=== PATIENT | male | born 1950 | race Caucasian/White ===

== ENCOUNTER 2019-04-17 09:12 | Day surgery (SDC) | payer OTHER, MEDICARE ==
[2019-04-13 17:08] VITALS: BMI 33.6
[2019-04-17 09:42] VITALS: TEMP 98.8
[2019-04-17] MEDS ORDERED: PHENYLEPHRINE HCL 10 MG/1 ML SINGLE DOSE VIAL ONE (10:21)
[2019-04-17 11:25] VITALS: BP 124/80; PULSE 92
--- NOTE | 2019-04-20 17:50 | PATH ---
Surgical Pathology Report Patient Name: NILSA ESTRADA [facility]. Rec. #: [id number] /Age/Gender: 1950 (Age: 68) / M Account: [id number] Location: [facility] Taken: 04/17/2019 Received: 04/17/2019 Reported: 04/20/2019 Physicians: FRANCES ELIZALDE Specimen(s) Received A: DUODENUM B: STOMACH WITH POLYP C: ESOPHAGUS D: POLYP CECUM E: CECUM F: ASCENDING COLON G: POLYP RECTUM Clinical History Reflux, positive cologuard test Postoperative diagnosis: Esophagitis, gastric polyp, gastric erosion, colon polyps, hemorrhoids Final Diagnosis A. DUODENUM, BIOPSY: DUODENAL MUCOSA WITHOUT SIGNIFICANT PATHOLOGIC FINDINGS. B. STOMACH, BODY, POLYP, BIOPSY: POLYPOID GASTRIC BODY MUCOSA WITH MILD CHRONIC GASTRITIS. IMMUNOHISTOCHEMICAL STAIN FOR H. PYLORI IS NEGATIVE. C. ESOPHAGUS, BIOPSY: SQUAMOCOLUMNAR MUCOSA WITH SEVERE REFLUX TYPE CHANGES AND ACUTE ESOPHAGITIS. DETACHED FRAGMENTS OF ACUTE INFLAMMATORY EXUDATE CONSISTENT WITH ULCER BED. NO INTESTINAL METAPLASIA OR DYSPLASIA IDENTIFIED. PAS FUNGAL STAIN IS NEGATIVE. D. CECUM, POLYP, BIOPSY: HYPERPLASTIC POLYP. E. CECUM, POLYPECTOMY: TUBULAR ADENOMA. F. ASCENDING COLON, POLYPECTOMY: TUBULAR ADENOMA(S). G. RECTUM, POLYP, BIOPSY: HYPERPLASTIC POLYP. Immunohistochemical stain performed at [place], [place] ([id number]) and interpreted at [facility]. Positive and negative controls (internal if applicable) show appropriate results. Electronically Signed Lizzeth Cruz M.D. Gross Description A. Received in formalin, labeled "biopsy duodenum" is a mehta, irregular portion of soft tissue measuring 0.2 cm. in greatest dimension. The specimen is submitted in toto in one cassette. B. Received in formalin, labeled "biopsy of stomach with polyp" are 3 mehta, irregular portions of soft tissue ranging from 0.2-0.4 cm. in greatest dimension. The specimens are submitted in toto in one cassette. C. Received in formalin, labeled "biopsy esophagus" are 4 mehta, irregular portions of soft tissue averaging 0.1 cm. in greatest dimension. The specimens are submitted in toto in one cassette. D. Received in formalin, labeled "biopsy polyp cecum" is a mehta, irregular portion of soft tissue measuring 0.3 cm. in greatest dimension. The specimen is submitted in toto in one cassette. E. Received in formalin, labeled "hot snare polypectomy cecum" are 2 mehta, irregular portions of soft tissue measuring 0.3 and 0.4 cm. in greatest dimension. The specimens are submitted in toto in one cassette. F. Received in formalin, labeled "hot snare polypectomy ascending colon" are 8 mehta, irregular portions of soft tissue ranging from 0.1-0.5 cm. in greatest dimension. The specimens are submitted in toto in one cassette. G. Received in formalin, labeled "biopsy polyp rectum" is a mehta, irregular portion of soft tissue measuring 0.2 cm. in greatest dimension. The specimen is submitted in toto in one cassette. 04/18/2019 [facility]04/18/2019
== END 2019-04-17 11:29 | disposition home or self-care (01) ==
LOC: FASU-ENDO 09:12
PROVIDERS: ATTEND Internal Medicine Gastroenterology
PROC: 0DBH8ZX Excision of Cecum, Via Natural or Artificial Opening Endoscopic, Diagnostic (ICD-10-PCS; 2019-04-17)
PROC: 0DBH8ZX Excision of Cecum, Via Natural or Artificial Opening Endoscopic, Diagnostic (ICD-10-PCS; 2019-04-17)
PROC: 0DBP8ZX Excision of Rectum, Via Natural or Artificial Opening Endoscopic, Diagnostic (ICD-10-PCS; 2019-04-17)
PROC: 0DB38ZX Excision of Lower Esophagus, Via Natural or Artificial Opening Endoscopic, Diagnostic (ICD-10-PCS; 2019-04-17)
PROC: 0DB68ZX Excision of Stomach, Via Natural or Artificial Opening Endoscopic, Diagnostic (ICD-10-PCS; 2019-04-17)
PROC: 0DBK8ZX Excision of Ascending Colon, Via Natural or Artificial Opening Endoscopic, Diagnostic (ICD-10-PCS; principal; 2019-04-17 10:05)
DX: Z12.11 Encounter for screening for malignant neoplasm of colon (principal); K64.4 Residual hemorrhoidal skin tags; K64.8 Other hemorrhoids; K29.50 Unspecified chronic gastritis without bleeding; K21.0 Gastro-esophageal reflux disease with esophagitis; K25.9 Gastric ulcer, unspecified as acute or chronic, without hemorrhage or perforation; K31.7 Polyp of stomach and duodenum; K20.8 Other esophagitis
CPT/HCPCS: 88305-TC; 88312-TC

== ENCOUNTER 2020-09-04 15:12 | Inpatient (IN) | payer OTHER, MEDICARE ==
[2020-09-04] MEDS ORDERED: SODIUM CHLORIDE 0.9% 500 ML INFUS.BAG IV ONE ×2 (16:07→17:52)
[2020-09-04] MEDS ORDERED: SODIUM CHLORIDE 3,266 ML IV ONE (16:09)
[2020-09-04] MEDS ORDERED: ACETAMINOPHEN INJECTION 100 ML IVPB ONE (17:02)
[2020-09-04] MEDS ORDERED: ACETAMINOPHEN 1000 MG/100 ML VIAL (NON FORMULARY) IVPB ONE (17:02)
[2020-09-04 17:18] LABS: BASO % 0.1 % (0-2.0); EOS % 0.2 % (0-4.5); HEMATOCRIT 34.9 % (35.4-49); LYMPH % 3.4 % (8-40); MCH 25.6 pg (25.7-33.7); MCHC 31.4 g/dl (32.0-35.9); MEAN CELL VOLUME 81.6 fl (80-96); MEAN PLT VOLUME 9.2 fl (7.5-11.1); MONO % 5.5 % (3.8-10.2); NEUT % 90.8 % (42.8-82.8); PLATELET COUNT 131 10^3/uL (134-434); RBC 4.28 M/mm3 (4.00-5.60); RDW 15.7 % (11.9-15.9); WHITE BLOOD COUNT 13.6 K/mm3 (4.0-10.0)
[2020-09-04 17:20] LABS: CHLORIDE 101 mmol/L (98-107); SODIUM 132 mmol/L (136-145)
[2020-09-04 17:23] LABS: BLOOD UREA NITROGEN 97.6 mg/dL (7-18)
[2020-09-04 17:24] LABS: ANION GAP 17 MMOL/L (8-16); CALCIUM 8.2 mg/dL (8.5-10.1); CO2 15 mmol/L (21-32); GLUCOSE,RANDOM 120 mg/dL (74-106); INR 1.12 (0.83-1.09); MAGNESIUM 2.3 mg/dL (1.8-2.4); PROTHROMBIN TIME (PATIENT) 13.7 SEC (9.7-13.0)
[2020-09-04 17:26] LABS: CREATININE 7.1 mg/dL (0.55-1.3); PHOSPHOROUS 4.6 mg/dL (2.5-4.9); SGOT/AST 35 U/L (15-37); SGPT/ALT 41 U/L (13-61)
[2020-09-04 17:27] LABS: ACTIVATED PTT 28.8 SECONDS (25.2-36.5)
[2020-09-04 17:28] LABS: BILIRUBIN,TOTAL 0.5 mg/dL (0.2-1); TOT PROT 6.5 g/dl (6.4-8.2)
[2020-09-04 17:29] LABS: ALK PHOS 94 U/L (45-117)
[2020-09-04 17:32] LABS: LACTIC ACID 2.7 mmol/L (0.4-2.0)
[2020-09-04 18:30] LABS: PLATELET ESTIMATE DECREASED
[2020-09-04 18:51] LABS: VENOUS BASE EXCESS -11.2 mmol/L (-2-2); VENOUS O2 SATURATION 78.2 % (70-80); VENOUS PCO2 28.1 mmHg (38-52); VENOUS PH 7.309 (7.310-7.410)
[2020-09-04 19:06] LABS: CHLORIDE 103 mmol/L (98-107); SODIUM 133 mmol/L (136-145)
[2020-09-04 19:07] LABS: CALCIUM 7.4 mg/dL (8.5-10.1)
[2020-09-04 19:08] LABS: ANION GAP 16 MMOL/L (8-16); BLOOD UREA NITROGEN 98.8 mg/dL (7-18); CO2 13 mmol/L (21-32); GLUCOSE,RANDOM 101 mg/dL (74-106); MAGNESIUM 2.1 mg/dL (1.8-2.4)
[2020-09-04 19:11] LABS: CREATININE 6.6 mg/dL (0.55-1.3); PHOSPHOROUS 4.2 mg/dL (2.5-4.9)
[2020-09-04 19:11] LABS: URINE APPEARANCE Clear; URINE BILIRUBIN Negative (NEGATIVE); URINE COLOR Yellow; URINE GLUCOSE (UA) Negative (NEGATIVE); URINE KETONE Negative (NEGATIVE); URINE LEUK ESTERASE 2+ (NEGATIVE); URINE NITRITE Negative (NEGATIVE); URINE PROTEIN 2+ (NEGATIVE); URINE UROBILINOGEN 0.2 mg/dL (0.2-1.0)
[2020-09-04 19:15] LABS: LACTIC ACID 2.4 mmol/L (0.4-2.0)
[2020-09-04 19:20] LABS: EPI CELLS 3.4 /uL (0-25.1); HYALINE CASTS 5.08 /uL (0-3.1); URINE BACTERIA 10353.3 /uL (0-1359); URINE RBC 32.9 /uL (0-23.9); URINE WBC 983.8 /uL (0-25.8)
[2020-09-04] MEDS ORDERED: CEFTRIAXONE 1 GM in DEXTROSE 5%-WATER - 100 ML IVPB ONE (19:35)
[2020-09-04 19:44] LABS: OSMOLALITY,SERUM 317 mosm/kg (278-305)
[2020-09-04] MEDS ORDERED: SODIUM BICARBONATE 8.4% 50 MEQ/50 ML VIAL ONE (19:53)
[2020-09-04] MEDS ORDERED: CEFTRIAXONE 1 GM/50 ML BAG ONE (19:54)
[2020-09-04] MEDS ORDERED: LACTATED RINGERS SOLUTION 1,000 ML/1,000 ML INFUS.BAG IV SCH (20:00)
[2020-09-04] MEDS: SODIUM BICARBONATE 8.4% 50 MEQ/50 ML DISP.SYRIN IVPUSH SCH (20:01)
[2020-09-05] MEDS ORDERED: PIPERACILLIN/TAZOB 2.25 GM 2.25 GM in DEXTROSE 5%-WATER - 50 ML IVPB SCH ×2 (02:00→10:00)
[2020-09-05] MEDS ORDERED: LINEZOLID 600 MG PREMIX BAG 600 MG/300 ML BAG IVPB SCH (02:00)
[2020-09-05] MEDS ORDERED: PIPERACILLIN/TAZOBACTAM 2.25 GM VIAL IVPB ONE ×3 (02:17→16:06)
[2020-09-05] MEDS ORDERED: DEXTROSE 5%-WATER - 50 ML IVPB ONE ×3 (02:17→16:07)
[2020-09-05] MEDS: PIPERACILLIN/TAZOB 2.25 GM 2.25 GM in DEXTROSE 5%-WATER - 50 ML IVPB SCH ×3 (02:19→17:08)
[2020-09-05] MEDS: SODIUM BICARBONATE 8.4% 50 MEQ/50 ML DISP.SYRIN IVPUSH SCH ×3 (02:23→16:56)
[2020-09-05] MEDS: HEPARIN NA (PORCINE) 5,000 UNITS/ML 1ML VIAL SQ SCH ×3 (05:51→22:00)
[2020-09-05 07:06] LABS: EOS % 1.9 % (0-4.5); HEMATOCRIT 28.3 % (35.4-49); HEMOGLOBIN 9.2 GM/dL (11.7-16.9); LYMPH % 1.2 % (8-40); MCH 25.7 pg (25.7-33.7); MCHC 32.3 g/dl (32.0-35.9); MEAN CELL VOLUME 79.5 fl (80-96); MEAN PLT VOLUME 9.4 fl (7.5-11.1); MONO % 6.1 % (3.8-10.2); NEUT % 90.8 % (42.8-82.8); PLATELET COUNT 97 10^3/uL (134-434); RBC 3.56 M/mm3 (4.00-5.60); RDW 15.9 % (11.9-15.9); WHITE BLOOD COUNT 15.4 K/mm3 (4.0-10.0)
[2020-09-05 07:19] LABS: CHLORIDE 103 mmol/L (98-107); SODIUM 136 mmol/L (136-145)
[2020-09-05 07:28] LABS: CALCIUM 7.2 mg/dL (8.5-10.1); GLUCOSE,RANDOM 108 mg/dL (74-106)
[2020-09-05 07:29] LABS: ANION GAP 18 MMOL/L (8-16); CO2 15 mmol/L (21-32); MAGNESIUM 1.8 mg/dL (1.8-2.4)
[2020-09-05 07:31] LABS: CHOLESTEROL 104 mg/dL (50-200); PHOSPHOROUS 4.6 mg/dL (2.5-4.9); TRIGLYCERIDES 294 mg/dL (0-150)
[2020-09-05 07:32] LABS: BILIRUBIN,TOTAL 0.6 mg/dL (0.2-1); CREATININE 7.4 mg/dL (0.55-1.3); LDH 308 U/L (87-246); LDL CHOLESTEROL (ONLY SJRH) 32 mg/dL (5-100); SGOT/AST 30 U/L (15-37); SGPT/ALT 33 U/L (13-61); URIC ACID 8.9 mg/dL (2.6-7.2)
[2020-09-05 07:33] LABS: ALK PHOS 102 U/L (45-117)
[2020-09-05 07:34] LABS: HDL CHOLESTEROL 9 mg/dL (40-60); TOT PROT 5.1 g/dl (6.4-8.2)
[2020-09-05 07:48] LABS: ALBUMIN 2.2 g/dl (3.4-5.0)
[2020-09-05] MEDS: ALLOPURINOL 100 MG TABLET (FP) PO SCH (09:16)
[2020-09-05] MEDS: PANTOPRAZOLE 40 MG TABLET PO SCH (09:16)
[2020-09-05] MEDS ORDERED: ALBUTEROL SO4 2.5/IPRATROPIUM 0.5 INH SOL 3 ML VIAL.NEB. NEB PRN (10:10)
[2020-09-05 10:14] LABS: ANISOCYTOSIS 1+; MACROCYTOSIS 0; PLATELET ESTIMATE DECREASED
[2020-09-05] MEDS ORDERED: LACTATED RINGERS SOLUTION 1,000 ML/1,000 ML INFUS.BAG IV SCH (13:29)
[2020-09-05] MEDS: metoPROLOL SUCCINATE 25 MG TAB.SR.24H (FP) PO SCH (17:46)
[2020-09-05] MEDS: SODIUM BICARBONATE 8.4% - 50 MEQ in SODIUM CHLORIDE 0.45% 1,000 ML IV SCH (18:18)
[2020-09-05] MEDS: ROSUVASTATIN CA 5 MG TABLET (FP) PO SCH (22:00)
[2020-09-05] MEDS ORDERED: PT OWN MED DRAWER 7, Y5N ONE (22:22)
[2020-09-06] MEDS ORDERED: DEXTROSE 5%-WATER - 50 ML IVPB ONE ×3 (01:48→17:12)
[2020-09-06] MEDS ORDERED: PIPERACILLIN/TAZOBACTAM 2.25 GM VIAL IVPB ONE ×3 (01:48→17:12)
[2020-09-06] MEDS ORDERED: PROPOFOL 1,000,000 MCG/100 ML VIAL ONE (01:49)
[2020-09-06] MEDS: PIPERACILLIN/TAZOB 2.25 GM 2.25 GM in DEXTROSE 5%-WATER - 50 ML IVPB SCH ×3 (02:00→17:30)
[2020-09-06] MEDS: SODIUM BICARBONATE 8.4% - 50 MEQ in SODIUM CHLORIDE 0.45% 1,000 ML IV SCH ×2 (05:54→19:30)
[2020-09-06] MEDS: HEPARIN NA (PORCINE) 5,000 UNITS/ML 1ML VIAL SQ SCH ×3 (05:55→21:09)
[2020-09-06 07:47] LABS: BASO % 0.2 % (0-2.0); HEMATOCRIT 27.6 % (35.4-49); LYMPH % 5.3 % (8-40); MCH 25.8 pg (25.7-33.7); MCHC 32.5 g/dl (32.0-35.9); MEAN CELL VOLUME 79.3 fl (80-96); MEAN PLT VOLUME 9.3 fl (7.5-11.1); MONO % 7.7 % (3.8-10.2); NEUT % 85.8 % (42.8-82.8); PLATELET COUNT 87 10^3/uL (134-434); RBC 3.48 M/mm3 (4.00-5.60); WHITE BLOOD COUNT 12.2 K/mm3 (4.0-10.0)
[2020-09-06 08:09] LABS: CHLORIDE 99 mmol/L (98-107); SODIUM 132 mmol/L (136-145)
[2020-09-06 08:13] LABS: CALCIUM 7.3 mg/dL (8.5-10.1)
[2020-09-06 08:14] LABS: ALBUMIN 1.9 g/dl (3.4-5.0); ANION GAP 15 MMOL/L (8-16); CO2 18 mmol/L (21-32); GLUCOSE,RANDOM 99 mg/dL (74-106); MAGNESIUM 2.3 mg/dL (1.8-2.4)
[2020-09-06 08:17] LABS: SGOT/AST 26 U/L (15-37); SGPT/ALT 32 U/L (13-61)
[2020-09-06 08:19] LABS: TOT PROT 5.2 g/dl (6.4-8.2)
[2020-09-06 08:20] LABS: ALK PHOS 103 U/L (45-117)
[2020-09-06 08:33] LABS: CREATININE 7.6 mg/dL (0.55-1.3)
[2020-09-06 09:02] LABS: ANISOCYTOSIS 2+; PLATELET ESTIMATE DECREASED
[2020-09-06] MEDS: metoPROLOL SUCCINATE 25 MG TAB.SR.24H (FP) PO SCH (09:44)
[2020-09-06] MEDS: PANTOPRAZOLE 40 MG TABLET PO SCH (09:44)
[2020-09-06] MEDS: POLYETHYLENE GLYCOL (HEALTHYLAX) 3350 17 GM PACKET PO SCH ×2 (09:44→21:09)
[2020-09-06] MEDS: SENNOSIDES 8.6MG TABLET (FP) PO SCH ×2 (09:44→21:10)
[2020-09-06] MEDS: ALLOPURINOL 100 MG TABLET (FP) PO SCH (09:44)
[2020-09-06] MEDS: ASPIRIN 81 MG CHEWABLE TABLETS PO SCH (09:44)
[2020-09-06 10:24] LABS: ARTERIAL BLD GAS O2 SATURATION 98.4 mmHg (95-98); ARTERIAL BLOOD GAS BASE EXCESS -4.6 mmol/L (-2-2); ARTERIAL BLOOD GAS PO2 118.2 mmHg (80-100)
[2020-09-06 10:25] LABS: ALLENS TEST POSITIVE
[2020-09-06] MEDS ORDERED: ACETAMINOPHEN 325 MG TABLET (FP) PO PRN (17:24)
[2020-09-06] MEDS: ROSUVASTATIN CA 5 MG TABLET (FP) PO SCH (21:09)
[2020-09-06] MEDS: DOCUSATE SODIUM 100 MG CAPSULE (FP) PO SCH (21:30)
[2020-09-07] MEDS ORDERED: DEXTROSE 5%-WATER - 50 ML IVPB ONE ×3 (00:07→15:18)
[2020-09-07] MEDS ORDERED: PIPERACILLIN/TAZOBACTAM 2.25 GM VIAL IVPB ONE ×3 (00:07→15:17)
[2020-09-07] MEDS: PIPERACILLIN/TAZOB 2.25 GM 2.25 GM in DEXTROSE 5%-WATER - 50 ML IVPB SCH ×3 (01:10→17:10)
[2020-09-07] MEDS: HEPARIN NA (PORCINE) 5,000 UNITS/ML 1ML VIAL SQ SCH ×3 (06:06→21:54)
[2020-09-07] MEDS: POLYETHYLENE GLYCOL (HEALTHYLAX) 3350 17 GM PACKET PO SCH ×2 (10:17→21:53)
[2020-09-07] MEDS: metoPROLOL SUCCINATE 25 MG TAB.SR.24H (FP) PO SCH (10:17)
[2020-09-07] MEDS: PANTOPRAZOLE 40 MG TABLET PO SCH (10:17)
[2020-09-07] MEDS: ALLOPURINOL 100 MG TABLET (FP) PO SCH (10:17)
[2020-09-07] MEDS: ASPIRIN 81 MG CHEWABLE TABLETS PO SCH (10:17)
[2020-09-07] MEDS: SENNOSIDES 8.6MG TABLET (FP) PO SCH ×2 (10:17→21:53)
[2020-09-07 10:21] LABS: BASO % 0.3 % (0-2.0); EOS % 1.1 % (0-4.5); HEMATOCRIT 30.9 % (35.4-49); HEMOGLOBIN 9.9 GM/dL (11.7-16.9); LYMPH % 8.3 % (8-40); MCH 25.6 pg (25.7-33.7); MEAN CELL VOLUME 79.9 fl (80-96); MEAN PLT VOLUME 9.6 fl (7.5-11.1); MONO % 6.6 % (3.8-10.2); NEUT % 83.7 % (42.8-82.8); PLATELET COUNT 103 10^3/uL (134-434); RBC 3.87 M/mm3 (4.00-5.60); RDW 16.1 % (11.9-15.9)
[2020-09-07 10:39] LABS: CHLORIDE 100 mmol/L (98-107); SODIUM 132 mmol/L (136-145)
[2020-09-07 10:41] LABS: ALBUMIN 1.8 g/dl (3.4-5.0); CALCIUM 7.7 mg/dL (8.5-10.1)
[2020-09-07 10:42] LABS: ANION GAP 16 MMOL/L (8-16); CO2 17 mmol/L (21-32); GLUCOSE,RANDOM 134 mg/dL (74-106); MAGNESIUM 2.6 mg/dL (1.8-2.4)
[2020-09-07 10:44] LABS: SGOT/AST 36 U/L (15-37); SGPT/ALT 41 U/L (13-61)
[2020-09-07 10:46] LABS: TOT PROT 5.3 g/dl (6.4-8.2)
[2020-09-07 10:54] LABS: ALK PHOS 145 U/L (45-117); BLOOD UREA NITROGEN 140.9 mg/dL (7-18)
[2020-09-07] MEDS: SODIUM BICARBONATE 8.4% - 50 MEQ in SODIUM CHLORIDE 0.45% 1,000 ML IV SCH (11:52)
[2020-09-07] MEDS ORDERED: PT OWN MED DRAWER 7, Y5N ONE (18:41)
[2020-09-07] MEDS: DOCUSATE SODIUM 100 MG CAPSULE (FP) PO SCH (21:53)
[2020-09-07] MEDS: ROSUVASTATIN CA 5 MG TABLET (FP) PO SCH (22:30)
[2020-09-08] MEDS ORDERED: PIPERACILLIN/TAZOBACTAM 2.25 GM VIAL IVPB ONE ×4 (01:17→21:44)
[2020-09-08] MEDS ORDERED: DEXTROSE 5%-WATER - 50 ML IVPB ONE ×4 (01:18→21:44)
[2020-09-08] MEDS: PIPERACILLIN/TAZOB 2.25 GM 2.25 GM in DEXTROSE 5%-WATER - 50 ML IVPB SCH ×3 (01:21→17:54)
[2020-09-08] MEDS: SODIUM BICARBONATE 8.4% - 50 MEQ in SODIUM CHLORIDE 0.45% 1,000 ML IV SCH ×2 (01:21→09:00)
[2020-09-08 06:41] LABS: BASO % 0.2 % (0-2.0); EOS % 1.2 % (0-4.5); HEMATOCRIT 28.5 % (35.4-49); HEMOGLOBIN 9.2 GM/dL (11.7-16.9); LYMPH % 6.1 % (8-40); MCH 25.5 pg (25.7-33.7); MCHC 32.4 g/dl (32.0-35.9); MEAN CELL VOLUME 78.8 fl (80-96); MEAN PLT VOLUME 9.4 fl (7.5-11.1); MONO % 8.4 % (3.8-10.2); NEUT % 84.1 % (42.8-82.8); PLATELET COUNT 132 10^3/uL (134-434); RBC 3.61 M/mm3 (4.00-5.60); RDW 16.4 % (11.9-15.9); WHITE BLOOD COUNT 11.2 K/mm3 (4.0-10.0)
[2020-09-08 06:53] LABS: CHLORIDE 100 mmol/L (98-107); SODIUM 134 mmol/L (136-145)
[2020-09-08] MEDS: HEPARIN NA (PORCINE) 5,000 UNITS/ML 1ML VIAL SQ SCH ×3 (06:53→21:37)
[2020-09-08 07:01] LABS: CALCIUM 7.7 mg/dL (8.5-10.1)
[2020-09-08 07:02] LABS: ALBUMIN 1.9 g/dl (3.4-5.0); ANION GAP 15 MMOL/L (8-16); CO2 19 mmol/L (21-32); GLUCOSE,RANDOM 92 mg/dL (74-106); MAGNESIUM 2.7 mg/dL (1.8-2.4)
[2020-09-08 07:04] LABS: SGPT/ALT 42 U/L (13-61)
[2020-09-08 07:05] LABS: SGOT/AST 31 U/L (15-37)
[2020-09-08 07:06] LABS: TOT PROT 5.3 g/dl (6.4-8.2)
[2020-09-08 07:08] LABS: ALK PHOS 157 U/L (45-117)
[2020-09-08 07:19] LABS: BLOOD UREA NITROGEN 147.4 mg/dL (7-18); CREATININE 8.4 mg/dL (0.55-1.3)
[2020-09-08] MEDS: PANTOPRAZOLE 40 MG TABLET PO SCH (09:02)
[2020-09-08] MEDS: metoPROLOL SUCCINATE 25 MG TAB.SR.24H (FP) PO SCH (09:02)
[2020-09-08] MEDS: ALLOPURINOL 100 MG TABLET (FP) PO SCH (09:02)
[2020-09-08] MEDS: ASPIRIN 81 MG CHEWABLE TABLETS PO SCH (09:02)
[2020-09-08] MEDS: POLYETHYLENE GLYCOL (HEALTHYLAX) 3350 17 GM PACKET PO SCH ×2 (09:15→21:37)
[2020-09-08] MEDS: SENNOSIDES 8.6MG TABLET (FP) PO SCH ×2 (09:15→21:37)
[2020-09-08] MEDS ORDERED: PT OWN MED DRAWER 7, Y5N ONE ×2 (21:37→21:40)
[2020-09-08] MEDS: DOCUSATE SODIUM 100 MG CAPSULE (FP) PO SCH (21:37)
[2020-09-08] MEDS: ROSUVASTATIN CA 5 MG TABLET (FP) PO SCH (21:39)
[2020-09-09] MEDS: PIPERACILLIN/TAZOB 2.25 GM 2.25 GM in DEXTROSE 5%-WATER - 50 ML IVPB SCH ×3 (01:00→17:36)
[2020-09-09] MEDS ORDERED: DEXTROSE 5%-WATER - 50 ML IVPB ONE ×3 (05:32→17:18)
[2020-09-09] MEDS ORDERED: PIPERACILLIN/TAZOBACTAM 2.25 GM VIAL IVPB ONE ×3 (05:32→17:18)
[2020-09-09 06:45] LABS: CHLORIDE 101 mmol/L (98-107); SODIUM 134 mmol/L (136-145)
[2020-09-09 06:50] LABS: CALCIUM 8.1 mg/dL (8.5-10.1)
[2020-09-09 06:51] LABS: ALBUMIN 2.2 g/dl (3.4-5.0); ANION GAP 16 MMOL/L (8-16); CO2 17 mmol/L (21-32); GLUCOSE,RANDOM 96 mg/dL (74-106); MAGNESIUM 2.9 mg/dL (1.8-2.4)
[2020-09-09 06:54] LABS: SGOT/AST 27 U/L (15-37); SGPT/ALT 42 U/L (13-61)
[2020-09-09 06:57] LABS: ALK PHOS 179 U/L (45-117)
[2020-09-09 07:19] LABS: BASO % 0.5 % (0-2.0); CREATININE 8.7 mg/dL (0.55-1.3); HEMATOCRIT 32.1 % (35.4-49); LYMPH % 5.1 % (8-40); MCH 25.2 pg (25.7-33.7); MEAN CELL VOLUME 81.1 fl (80-96); MEAN PLT VOLUME 9.4 fl (7.5-11.1); MONO % 8.2 % (3.8-10.2); NEUT % 85.2 % (42.8-82.8); PLATELET COUNT 188 10^3/uL (134-434); RBC 3.96 M/mm3 (4.00-5.60); RDW 16.5 % (11.9-15.9); WHITE BLOOD COUNT 10.8 K/mm3 (4.0-10.0)
[2020-09-09 07:29] LABS: BLOOD UREA NITROGEN 157.7 mg/dL (7-18)
[2020-09-09 07:54] LABS: INR 1.13 (0.83-1.09); PROTHROMBIN TIME (PATIENT) 13.9 SEC (9.7-13.0)
[2020-09-09] MEDS ORDERED: MIDAZOLAM HCL 2 MG/2 ML SINGLE DOSE VIAL ONE (07:54)
[2020-09-09] MEDS ORDERED: ceFAZolin SODIUM 1 GM VIAL IVPB ONE (08:40)
[2020-09-09] MEDS ORDERED: ONDANSETRON 4 MG/2 ML VIAL IVPUSH PRN ×2 (08:48→09:40)
[2020-09-09] MEDS ORDERED: PROPOFOL 20 ML ONE (08:50)
[2020-09-09] MEDS ORDERED: IOHEXOL 300 MG/ML INFUS..BTL IV ONE (08:50)
[2020-09-09] MEDS ORDERED: LACTATED RINGERS SOLUTION 1,000 ML IV SCH (09:00)
[2020-09-09] MEDS ORDERED: ALBUTEROL SO4 2.5/IPRATROPIUM 0.5 INH SOL 3 ML VIAL.NEB. NEB PRN (09:40)
[2020-09-09] MEDS ORDERED: SODIUM ZIRCONIUM CYCLOSILICATE (LOKELMA) 5 GM PACKET PO SCH (10:00)
[2020-09-09] MEDS: LACTATED RINGERS SOLUTION 1,000 ML IV SCH ×2 (10:10→10:40)
[2020-09-09] MEDS: PANTOPRAZOLE 40 MG TABLET PO SCH (11:26)
[2020-09-09] MEDS: ASPIRIN 81 MG CHEWABLE TABLETS PO SCH (11:26)
[2020-09-09] MEDS: SENNOSIDES 8.6MG TABLET (FP) PO SCH ×2 (11:26→22:12)
[2020-09-09] MEDS: POLYETHYLENE GLYCOL (HEALTHYLAX) 3350 17 GM PACKET PO SCH ×2 (11:26→22:12)
[2020-09-09] MEDS: MUPIROCIN 2% TOPICAL OINTMENT FOR DECOLONIZATION NS SCH ×2 (11:27→22:21)
[2020-09-09] MEDS: ALLOPURINOL 100 MG TABLET (FP) PO SCH (11:27)
[2020-09-09] MEDS ORDERED: SODIUM CHLORIDE 0.45% 1,000 ML IV SCH (15:00)
[2020-09-09] MEDS: SODIUM ZIRCONIUM CYCLOSILICATE (LOKELMA) 5 GM PACKET PO SCH (15:56)
[2020-09-09] MEDS: ACETAMINOPHEN 325 MG TABLET (FP) PO PRN (17:39)
[2020-09-09] MEDS: oxyCODONE HCL 5 MG TABLET PO PRN (17:40)
[2020-09-09] MEDS ORDERED: PT OWN MED DRAWER 7, Y5N ONE (22:08)
[2020-09-09] MEDS: DOCUSATE SODIUM 100 MG CAPSULE (FP) PO SCH (22:10)
[2020-09-09] MEDS: ROSUVASTATIN CA 5 MG TABLET (FP) PO SCH (22:11)
[2020-09-09] MEDS: HEPARIN NA (PORCINE) 5,000 UNITS/ML 1ML VIAL SQ SCH (22:12)
[2020-09-09] MEDS: CHLORHEXIDINE GLUCONATE 4% CLEANSER FOR DECOLONIZATION TP SCH (22:23)
[2020-09-10] MEDS ORDERED: DEXTROSE 5%-WATER - 50 ML IVPB ONE ×3 (01:21→18:18)
[2020-09-10] MEDS ORDERED: PIPERACILLIN/TAZOBACTAM 2.25 GM VIAL IVPB ONE ×3 (01:21→18:18)
[2020-09-10] MEDS: PIPERACILLIN/TAZOB 2.25 GM 2.25 GM in DEXTROSE 5%-WATER - 50 ML IVPB SCH ×3 (01:38→18:25)
[2020-09-10] MEDS: HEPARIN NA (PORCINE) 5,000 UNITS/ML 1ML VIAL SQ SCH ×3 (05:21→22:03)
[2020-09-10 06:42] LABS: BASO % 0.2 % (0-2.0); EOS % 0.6 % (0-4.5); HEMATOCRIT 28.7 % (35.4-49); HEMOGLOBIN 8.9 GM/dL (11.7-16.9); MCH 25.5 pg (25.7-33.7); MCHC 31.2 g/dl (32.0-35.9); MEAN CELL VOLUME 81.6 fl (80-96); MEAN PLT VOLUME 9.1 fl (7.5-11.1); NEUT % 83.2 % (42.8-82.8); PLATELET COUNT 195 10^3/uL (134-434); RBC 3.52 M/mm3 (4.00-5.60); RDW 16.8 % (11.9-15.9); WHITE BLOOD COUNT 20.9 K/mm3 (4.0-10.0)
[2020-09-10 06:50] LABS: CHLORIDE 103 mmol/L (98-107); SODIUM 136 mmol/L (136-145)
[2020-09-10 06:52] LABS: CALCIUM 7.8 mg/dL (8.5-10.1)
[2020-09-10 06:53] LABS: ANION GAP 17 MMOL/L (8-16); CO2 16 mmol/L (21-32); GLUCOSE,RANDOM 91 mg/dL (74-106); MAGNESIUM 2.7 mg/dL (1.8-2.4)
[2020-09-10 06:56] LABS: SGOT/AST 23 U/L (15-37); SGPT/ALT 28 U/L (13-61)
[2020-09-10 06:57] LABS: BILIRUBIN,TOTAL 0.6 mg/dL (0.2-1); TOT PROT 5.9 g/dl (6.4-8.2)
[2020-09-10 06:59] LABS: ALK PHOS 170 U/L (45-117)
[2020-09-10 07:08] LABS: BLOOD UREA NITROGEN 147.3 mg/dL (7-18); CREATININE 8.6 mg/dL (0.55-1.3)
[2020-09-10 07:33] LABS: PHOSPHOROUS 8.9 mg/dL (2.5-4.9)
[2020-09-10 09:17] LABS: ANISOCYTOSIS 0; HELMET CELLS 0; HOWELL-JOLLY BODIES 0; MACROCYTOSIS 0; OVALOCYTE 0; PLATELET ESTIMATE NORMAL; ROULEAU 0; SICKELED CELLS 0; TARGET CELLS 0; TEAR DROP CELLS 0; TOXIC GRANULATION 0
[2020-09-10] MEDS ORDERED: PT OWN MED DRAWER 7, Y5N ONE ×2 (09:31→21:34)
[2020-09-10] MEDS: SENNOSIDES 8.6MG TABLET (FP) PO SCH ×3 (10:00→22:03)
[2020-09-10] MEDS: MUPIROCIN 2% TOPICAL OINTMENT FOR DECOLONIZATION NS SCH ×2 (10:04→22:03)
[2020-09-10] MEDS: POLYETHYLENE GLYCOL (HEALTHYLAX) 3350 17 GM PACKET PO SCH ×3 (10:05→22:03)
[2020-09-10] MEDS: SODIUM ZIRCONIUM CYCLOSILICATE (LOKELMA) 5 GM PACKET PO SCH (10:06)
[2020-09-10] MEDS: ASPIRIN 81 MG CHEWABLE TABLETS PO SCH (10:06)
[2020-09-10] MEDS: PANTOPRAZOLE 40 MG TABLET PO SCH (10:07)
[2020-09-10] MEDS: ALLOPURINOL 100 MG TABLET (FP) PO SCH (10:08)
[2020-09-10] MEDS ORDERED: SODIUM CHLORIDE 0.45% 1,000 ML IV SCH (11:17)
[2020-09-10 11:29] LABS: CHLORIDE 103 mmol/L (98-107); SODIUM 137 mmol/L (136-145)
[2020-09-10 11:31] LABS: CALCIUM 7.9 mg/dL (8.5-10.1)
[2020-09-10 11:32] LABS: ANION GAP 17 MMOL/L (8-16); CO2 18 mmol/L (21-32); GLUCOSE,RANDOM 113 mg/dL (74-106)
[2020-09-10 11:38] LABS: BLOOD UREA NITROGEN 146.5 mg/dL (7-18); CREATININE 8.5 mg/dL (0.55-1.3)
[2020-09-10] MEDS: ACETAMINOPHEN 325 MG TABLET (FP) PO PRN (20:04)
[2020-09-10] MEDS: ROSUVASTATIN CA 5 MG TABLET (FP) PO SCH (22:02)
[2020-09-10] MEDS: DOCUSATE SODIUM 100 MG CAPSULE (FP) PO SCH (22:03)
[2020-09-10] MEDS: CHLORHEXIDINE GLUCONATE 4% CLEANSER FOR DECOLONIZATION TP SCH (22:06)
[2020-09-11] MEDS ORDERED: PIPERACILLIN/TAZOBACTAM 2.25 GM VIAL IVPB ONE ×2 (00:17→09:30)
[2020-09-11] MEDS ORDERED: DEXTROSE 5%-WATER - 50 ML IVPB ONE ×2 (00:18→09:30)
[2020-09-11] MEDS: oxyCODONE HCL 5 MG TABLET PO PRN ×2 (00:19→20:55)
[2020-09-11] MEDS: PIPERACILLIN/TAZOB 2.25 GM 2.25 GM in DEXTROSE 5%-WATER - 50 ML IVPB SCH ×2 (01:13→10:07)
[2020-09-11] MEDS: HEPARIN NA (PORCINE) 5,000 UNITS/ML 1ML VIAL SQ SCH ×3 (06:17→22:51)
[2020-09-11 07:06] LABS: BASO % 0.8 % (0-2.0); EOS % 0.9 % (0-4.5); HEMATOCRIT 30.2 % (35.4-49); HEMOGLOBIN 9.6 GM/dL (11.7-16.9); LYMPH % 5.2 % (8-40); MCH 25.3 pg (25.7-33.7); MCHC 31.7 g/dl (32.0-35.9); MEAN CELL VOLUME 79.8 fl (80-96); MEAN PLT VOLUME 8.8 fl (7.5-11.1); MONO % 5.4 % (3.8-10.2); NEUT % 87.7 % (42.8-82.8); PLATELET COUNT 289 10^3/uL (134-434); RBC 3.79 M/mm3 (4.00-5.60); RDW 16.4 % (11.9-15.9); WHITE BLOOD COUNT 13.7 K/mm3 (4.0-10.0)
[2020-09-11 07:24] LABS: CHLORIDE 104 mmol/L (98-107); SODIUM 136 mmol/L (136-145)
[2020-09-11 07:29] LABS: ALBUMIN 2.1 g/dl (3.4-5.0)
[2020-09-11 07:30] LABS: ANION GAP 15 MMOL/L (8-16); CO2 17 mmol/L (21-32); GLUCOSE,RANDOM 95 mg/dL (74-106); MAGNESIUM 2.8 mg/dL (1.8-2.4)
[2020-09-11 07:32] LABS: SGOT/AST 17 U/L (15-37); SGPT/ALT 22 U/L (13-61)
[2020-09-11 07:34] LABS: BILIRUBIN,TOTAL 0.6 mg/dL (0.2-1); TOT PROT 6.4 g/dl (6.4-8.2)
[2020-09-11 07:35] LABS: ALK PHOS 170 U/L (45-117)
[2020-09-11 07:48] LABS: BLOOD UREA NITROGEN 148.3 mg/dL (7-18); CREATININE 7.8 mg/dL (0.55-1.3)
[2020-09-11] MEDS: ASPIRIN 81 MG CHEWABLE TABLETS PO SCH (10:06)
[2020-09-11] MEDS: SODIUM CHLORIDE 0.45% 1,000 ML IV SCH (10:06)
[2020-09-11] MEDS: SODIUM ZIRCONIUM CYCLOSILICATE (LOKELMA) 5 GM PACKET PO SCH (10:07)
[2020-09-11] MEDS: PANTOPRAZOLE 40 MG TABLET PO SCH (10:07)
[2020-09-11] MEDS: ALLOPURINOL 100 MG TABLET (FP) PO SCH (10:07)
[2020-09-11] MEDS: MUPIROCIN 2% TOPICAL OINTMENT FOR DECOLONIZATION NS SCH ×2 (10:09→22:50)
[2020-09-11] MEDS: SENNOSIDES 8.6MG TABLET (FP) PO SCH ×2 (10:09→22:52)
[2020-09-11] MEDS: POLYETHYLENE GLYCOL (HEALTHYLAX) 3350 17 GM PACKET PO SCH ×2 (10:09→22:51)
[2020-09-11] MEDS ORDERED: DEXTROSE 5%-WATER 100 ML IVPB ONE (17:03)
[2020-09-11 17:09] LABS: ATYPICAL pANCA <1:20 titer (Neg:<1:20); C-ANCA <1:20 titer (Neg:<1:20)
[2020-09-11] MEDS: CEFTRIAXONE 2 GM in DEXTROSE 5%-WATER 100 ML IVPB SCH (17:13)
[2020-09-11] MEDS: ACETAMINOPHEN 325 MG TABLET (FP) PO PRN (18:38)
[2020-09-11] MEDS: ROSUVASTATIN CA 5 MG TABLET (FP) PO SCH (22:51)
[2020-09-11] MEDS: DOCUSATE SODIUM 100 MG CAPSULE (FP) PO SCH (22:51)
[2020-09-11] MEDS: CHLORHEXIDINE GLUCONATE 4% CLEANSER FOR DECOLONIZATION TP SCH (22:52)
[2020-09-12] MEDS: HEPARIN NA (PORCINE) 5,000 UNITS/ML 1ML VIAL SQ SCH ×3 (05:54→21:15)
[2020-09-12] MEDS: oxyCODONE HCL 5 MG TABLET PO PRN ×3 (05:54→21:16)
[2020-09-12] MEDS ORDERED: DEXTROSE 5%-WATER 100 ML IVPB ONE (09:32)
[2020-09-12] MEDS: CEFTRIAXONE 2 GM in DEXTROSE 5%-WATER 100 ML IVPB SCH (09:36)
[2020-09-12] MEDS: ASPIRIN 81 MG CHEWABLE TABLETS PO SCH (09:38)
[2020-09-12] MEDS: SENNOSIDES 8.6MG TABLET (FP) PO SCH ×3 (09:38→21:09)
[2020-09-12] MEDS: MUPIROCIN 2% TOPICAL OINTMENT FOR DECOLONIZATION NS SCH ×2 (09:39→21:20)
[2020-09-12] MEDS: ALLOPURINOL 100 MG TABLET (FP) PO SCH (09:39)
[2020-09-12] MEDS: PANTOPRAZOLE 40 MG TABLET PO SCH (09:40)
[2020-09-12] MEDS: SODIUM ZIRCONIUM CYCLOSILICATE (LOKELMA) 5 GM PACKET PO SCH (09:40)
[2020-09-12] MEDS: POLYETHYLENE GLYCOL (HEALTHYLAX) 3350 17 GM PACKET PO SCH ×2 (09:44→21:09)
[2020-09-12 14:16] LABS: BASO % 0.9 % (0-2.0); EOS % 1.1 % (0-4.5); HEMATOCRIT 30.7 % (35.4-49); HEMOGLOBIN 9.4 GM/dL (11.7-16.9); LYMPH % 7.7 % (8-40); MCH 25.2 pg (25.7-33.7); MCHC 30.6 g/dl (32.0-35.9); MEAN CELL VOLUME 82.3 fl (80-96); MEAN PLT VOLUME 8.9 fl (7.5-11.1); MONO % 7.4 % (3.8-10.2); NEUT % 82.9 % (42.8-82.8); PLATELET COUNT 349 10^3/uL (134-434); RBC 3.74 M/mm3 (4.00-5.60); RDW 16.6 % (11.9-15.9); WHITE BLOOD COUNT 11.2 K/mm3 (4.0-10.0)
[2020-09-12 14:31] LABS: CHLORIDE 109 mmol/L (98-107); SODIUM 138 mmol/L (136-145)
[2020-09-12 14:36] LABS: CALCIUM 8.5 mg/dL (8.5-10.1)
[2020-09-12 14:37] LABS: ALBUMIN 2.2 g/dl (3.4-5.0); ANION GAP 13 MMOL/L (8-16); CO2 16 mmol/L (21-32); GLUCOSE,RANDOM 120 mg/dL (74-106)
[2020-09-12 14:40] LABS: CREATININE 6.8 mg/dL (0.55-1.3); SGOT/AST 15 U/L (15-37); SGPT/ALT 18 U/L (13-61)
[2020-09-12 14:41] LABS: BILIRUBIN,TOTAL 0.4 mg/dL (0.2-1); TOT PROT 6.6 g/dl (6.4-8.2)
[2020-09-12 14:43] LABS: ALK PHOS 149 U/L (45-117)
[2020-09-12] MEDS: SODIUM CHLORIDE 0.45% 1,000 ML IV SCH (14:54)
[2020-09-12] MEDS: ACETAMINOPHEN 325 MG TABLET (FP) PO PRN ×2 (14:54→21:17)
[2020-09-12] MEDS: SODIUM BICARBONATE 650 MG TABLET PO SCH (16:27)
[2020-09-12] MEDS: DOCUSATE SODIUM 100 MG CAPSULE (FP) PO SCH (21:08)
[2020-09-12] MEDS: ROSUVASTATIN CA 5 MG TABLET (FP) PO SCH (21:20)
[2020-09-12] MEDS: CHLORHEXIDINE GLUCONATE 4% CLEANSER FOR DECOLONIZATION TP SCH (21:20)
[2020-09-12] MEDS ORDERED: PT OWN MED DRAWER 7, Y5N ONE (21:22)
[2020-09-13] MEDS: HEPARIN NA (PORCINE) 5,000 UNITS/ML 1ML VIAL SQ SCH ×3 (06:22→21:22)
[2020-09-13 07:27] LABS: BASO % 0.7 % (0-2.0); EOS % 1.1 % (0-4.5); HEMATOCRIT 28.6 % (35.4-49); LYMPH % 5.7 % (8-40); MCH 25.1 pg (25.7-33.7); MCHC 31.3 g/dl (32.0-35.9); MEAN CELL VOLUME 80.2 fl (80-96); MEAN PLT VOLUME 8.6 fl (7.5-11.1); MONO % 6.5 % (3.8-10.2); PLATELET COUNT 413 10^3/uL (134-434); RBC 3.57 M/mm3 (4.00-5.60); RDW 16.8 % (11.9-15.9); WHITE BLOOD COUNT 11.5 K/mm3 (4.0-10.0)
[2020-09-13 07:43] LABS: CHLORIDE 111 mmol/L (98-107); SODIUM 139 mmol/L (136-145)
[2020-09-13 07:47] LABS: ALBUMIN 2.3 g/dl (3.4-5.0); ANION GAP 12 MMOL/L (8-16); CALCIUM 8.5 mg/dL (8.5-10.1); CO2 17 mmol/L (21-32); GLUCOSE,RANDOM 103 mg/dL (74-106); MAGNESIUM 2.2 mg/dL (1.8-2.4)
[2020-09-13 07:50] LABS: CREATININE 6.5 mg/dL (0.55-1.3); SGPT/ALT 17 U/L (13-61)
[2020-09-13 07:51] LABS: SGOT/AST 11 U/L (15-37)
[2020-09-13 07:52] LABS: BILIRUBIN,TOTAL 0.4 mg/dL (0.2-1)
[2020-09-13 07:53] LABS: ALK PHOS 146 U/L (45-117)
[2020-09-13] MEDS: ACETAMINOPHEN 325 MG TABLET (FP) PO PRN (07:57)
[2020-09-13] MEDS: oxyCODONE HCL 5 MG TABLET PO PRN ×2 (07:58→19:49)
[2020-09-13 07:59] LABS: BLOOD UREA NITROGEN 119.2 mg/dL (7-18)
[2020-09-13] MEDS ORDERED: SODIUM ZIRCONIUM CYCLOSILICATE (LOKELMA) 5 GM PACKET PO ONE (09:22)
[2020-09-13] MEDS ORDERED: DEXTROSE 5%-WATER 100 ML IVPB ONE (09:33)
[2020-09-13] MEDS: ASPIRIN 81 MG CHEWABLE TABLETS PO SCH (10:13)
[2020-09-13] MEDS: ALLOPURINOL 100 MG TABLET (FP) PO SCH (10:13)
[2020-09-13] MEDS: SODIUM BICARBONATE 650 MG TABLET PO SCH (10:13)
[2020-09-13] MEDS: PANTOPRAZOLE 40 MG TABLET PO SCH (10:13)
[2020-09-13] MEDS: POLYETHYLENE GLYCOL (HEALTHYLAX) 3350 17 GM PACKET PO SCH ×2 (10:14→21:22)
[2020-09-13] MEDS: CEFTRIAXONE 2 GM in DEXTROSE 5%-WATER 100 ML IVPB SCH (10:14)
[2020-09-13] MEDS: MUPIROCIN 2% TOPICAL OINTMENT FOR DECOLONIZATION NS SCH ×2 (10:14→21:21)
[2020-09-13] MEDS: SENNOSIDES 8.6MG TABLET (FP) PO SCH ×2 (10:48→21:23)
[2020-09-13] MEDS: DOCUSATE SODIUM 100 MG CAPSULE (FP) PO SCH (21:21)
[2020-09-13] MEDS: CHLORHEXIDINE GLUCONATE 4% CLEANSER FOR DECOLONIZATION TP SCH (21:22)
[2020-09-13] MEDS ORDERED: PT OWN MED DRAWER 7, Y5N ONE (21:26)
[2020-09-13] MEDS: ROSUVASTATIN CA 5 MG TABLET (FP) PO SCH (21:26)
[2020-09-14] MEDS: oxyCODONE HCL 5 MG TABLET PO PRN ×2 (02:37→21:54)
[2020-09-14] MEDS: HEPARIN NA (PORCINE) 5,000 UNITS/ML 1ML VIAL SQ SCH ×3 (06:06→21:54)
[2020-09-14] MEDS ORDERED: DEXTROSE 5%-WATER 100 ML IVPB ONE (08:52)
[2020-09-14] MEDS: SODIUM BICARBONATE 650 MG TABLET PO SCH ×2 (09:51→21:56)
[2020-09-14] MEDS: CEFTRIAXONE 2 GM in DEXTROSE 5%-WATER 100 ML IVPB SCH (09:51)
[2020-09-14] MEDS: ASPIRIN 81 MG CHEWABLE TABLETS PO SCH (09:51)
[2020-09-14] MEDS: POLYETHYLENE GLYCOL (HEALTHYLAX) 3350 17 GM PACKET PO SCH ×2 (09:52→22:14)
[2020-09-14] MEDS: PANTOPRAZOLE 40 MG TABLET PO SCH (09:52)
[2020-09-14] MEDS: ALLOPURINOL 100 MG TABLET (FP) PO SCH (09:52)
[2020-09-14] MEDS: SENNOSIDES 8.6MG TABLET (FP) PO SCH ×2 (09:52→22:14)
[2020-09-14 11:26] LABS: BASO % 0.9 % (0-2.0); EOS % 0.4 % (0-4.5); HEMATOCRIT 28.9 % (35.4-49); HEMOGLOBIN 8.9 GM/dL (11.7-16.9); LYMPH % 6.6 % (8-40); MCH 25.1 pg (25.7-33.7); MCHC 30.9 g/dl (32.0-35.9); MEAN CELL VOLUME 81.3 fl (80-96); MEAN PLT VOLUME 8.6 fl (7.5-11.1); MONO % 7.8 % (3.8-10.2); NEUT % 84.3 % (42.8-82.8); PLATELET COUNT 511 10^3/uL (134-434); RBC 3.56 M/mm3 (4.00-5.60); RDW 16.6 % (11.9-15.9); WHITE BLOOD COUNT 10.3 K/mm3 (4.0-10.0)
[2020-09-14] MEDS ORDERED: SODIUM ZIRCONIUM CYCLOSILICATE (LOKELMA) 5 GM PACKET PO ONE (11:30)
[2020-09-14 11:46] LABS: ALBUMIN 2.4 g/dl (3.4-5.0); BLOOD UREA NITROGEN 100.8 mg/dL (7-18); CALCIUM 8.9 mg/dL (8.5-10.1)
[2020-09-14 11:47] LABS: MAGNESIUM 2.2 mg/dL (1.8-2.4)
[2020-09-14 11:49] LABS: CREATININE 5.7 mg/dL (0.55-1.3)
[2020-09-14 11:51] LABS: BILIRUBIN,TOTAL 0.4 mg/dL (0.2-1); TOT PROT 7.1 g/dl (6.4-8.2)
[2020-09-14] MEDS: SODIUM CHLORIDE 0.45% 1,000 ML IV SCH ×2 (12:05→21:54)
[2020-09-14] MEDS: ACETAMINOPHEN 325 MG TABLET (FP) PO PRN ×2 (14:21→21:55)
[2020-09-14] MEDS ORDERED: PT OWN MED DRAWER 7, Y5N ONE ×2 (15:41→21:51)
[2020-09-14] MEDS: valACYclovir HCL 500 MG TABLET (FP) PO SCH (16:42)
[2020-09-14] MEDS: ROSUVASTATIN CA 5 MG TABLET (FP) PO SCH (21:56)
[2020-09-14] MEDS: DOCUSATE SODIUM 100 MG CAPSULE (FP) PO SCH (22:14)
[2020-09-14] MEDS: CHLORHEXIDINE GLUCONATE 4% CLEANSER FOR DECOLONIZATION TP SCH (22:14)
[2020-09-15] MEDS ORDERED: oxyCODONE HCL 5 MG TABLET PO ONE (00:36)
[2020-09-15] MEDS: HEPARIN NA (PORCINE) 5,000 UNITS/ML 1ML VIAL SQ SCH ×3 (07:07→22:22)
[2020-09-15] MEDS: oxyCODONE HCL 5 MG TABLET PO PRN ×3 (08:58→22:37)
[2020-09-15] MEDS ORDERED: DEXTROSE 5%-WATER 100 ML IVPB ONE (09:05)
[2020-09-15] MEDS: SENNOSIDES 8.6MG TABLET (FP) PO SCH ×2 (09:07→22:23)
[2020-09-15] MEDS: SODIUM BICARBONATE 650 MG TABLET PO SCH ×2 (09:07→22:23)
[2020-09-15] MEDS: ASPIRIN 81 MG CHEWABLE TABLETS PO SCH (09:07)
[2020-09-15] MEDS: PANTOPRAZOLE 40 MG TABLET PO SCH (09:07)
[2020-09-15] MEDS: ALLOPURINOL 100 MG TABLET (FP) PO SCH (09:07)
[2020-09-15] MEDS: POLYETHYLENE GLYCOL (HEALTHYLAX) 3350 17 GM PACKET PO SCH ×2 (09:07→22:22)
[2020-09-15] MEDS: CEFTRIAXONE 2 GM in DEXTROSE 5%-WATER 100 ML IVPB SCH (09:08)
[2020-09-15 11:12] LABS: BASO % 1.3 % (0-2.0); EOS % 0.3 % (0-4.5); HEMATOCRIT 26.7 % (35.4-49); HEMOGLOBIN 8.6 GM/dL (11.7-16.9); LYMPH % 6.8 % (8-40); MCH 25.8 pg (25.7-33.7); MCHC 32.1 g/dl (32.0-35.9); MEAN CELL VOLUME 80.3 fl (80-96); NEUT % 82.6 % (42.8-82.8); PLATELET COUNT 505 10^3/uL (134-434); RBC 3.32 M/mm3 (4.00-5.60); RDW 16.7 % (11.9-15.9); WHITE BLOOD COUNT 9.9 K/mm3 (4.0-10.0)
[2020-09-15 11:33] LABS: CALCIUM 8.3 mg/dL (8.5-10.1)
[2020-09-15 11:34] LABS: BLOOD UREA NITROGEN 76.2 mg/dL (7-18)
[2020-09-15 11:36] LABS: MAGNESIUM 1.9 mg/dL (1.8-2.4)
[2020-09-15 11:37] LABS: CREATININE 4.3 mg/dL (0.55-1.3)
[2020-09-15 11:38] LABS: BILIRUBIN,TOTAL 0.3 mg/dL (0.2-1); TOT PROT 6.1 g/dl (6.4-8.2)
[2020-09-15] MEDS: ACETAMINOPHEN 325 MG TABLET (FP) PO PRN ×2 (12:01→18:21)
[2020-09-15] MEDS ORDERED: oxyCODONE HCL 5 MG TABLET PO PRN (12:46)
[2020-09-15] MEDS: SODIUM CHLORIDE 0.45% 1,000 ML IV SCH ×2 (12:50→16:24)
[2020-09-15] MEDS ORDERED: PT OWN MED DRAWER 7, Y5N ONE ×3 (16:15→22:24)
[2020-09-15] MEDS: valACYclovir HCL 500 MG TABLET (FP) PO SCH (16:19)
[2020-09-15] MEDS: DOCUSATE SODIUM 100 MG CAPSULE (FP) PO SCH (22:22)
[2020-09-15] MEDS: ROSUVASTATIN CA 5 MG TABLET (FP) PO SCH (22:22)
[2020-09-15] MEDS: CHLORHEXIDINE GLUCONATE 4% CLEANSER FOR DECOLONIZATION TP SCH (22:23)
[2020-09-16 06:41] LABS: BASO % 3.3 % (0-2.0); EOS % 0.6 % (0-4.5); HEMATOCRIT 25.7 % (35.4-49); HEMOGLOBIN 8.1 GM/dL (11.7-16.9); LYMPH % 10.7 % (8-40); MCH 25.4 pg (25.7-33.7); MCHC 31.4 g/dl (32.0-35.9); MEAN PLT VOLUME 8.1 fl (7.5-11.1); MONO % 9.2 % (3.8-10.2); NEUT % 76.2 % (42.8-82.8); PLATELET COUNT 535 10^3/uL (134-434); RBC 3.17 M/mm3 (4.00-5.60); RDW 17.1 % (11.9-15.9); WHITE BLOOD COUNT 10.6 K/mm3 (4.0-10.0)
[2020-09-16 07:03] LABS: CALCIUM 8.2 mg/dL (8.5-10.1)
[2020-09-16 07:04] LABS: ALBUMIN 1.9 g/dl (3.4-5.0); BLOOD UREA NITROGEN 66.9 mg/dL (7-18); MAGNESIUM 1.8 mg/dL (1.8-2.4)
[2020-09-16 07:07] LABS: CREATININE 3.9 mg/dL (0.55-1.3)
[2020-09-16 07:09] LABS: BILIRUBIN,TOTAL 0.4 mg/dL (0.2-1); TOT PROT 6.2 g/dl (6.4-8.2)
[2020-09-16] MEDS: HEPARIN NA (PORCINE) 5,000 UNITS/ML 1ML VIAL SQ SCH (07:48)
[2020-09-16] MEDS: oxyCODONE HCL 5 MG TABLET PO PRN ×2 (07:49→14:02)
[2020-09-16] MEDS ORDERED: DEXTROSE 5%-WATER 100 ML IVPB ONE (09:19)
[2020-09-16] MEDS: SENNOSIDES 8.6MG TABLET (FP) PO SCH ×2 (09:24→21:06)
[2020-09-16] MEDS: ASPIRIN 81 MG CHEWABLE TABLETS PO SCH ×2 (09:24→10:01)
[2020-09-16] MEDS: PANTOPRAZOLE 40 MG TABLET PO SCH (09:24)
[2020-09-16] MEDS: SODIUM BICARBONATE 650 MG TABLET PO SCH ×2 (09:24→21:07)
[2020-09-16] MEDS: POLYETHYLENE GLYCOL (HEALTHYLAX) 3350 17 GM PACKET PO SCH ×2 (09:24→21:06)
[2020-09-16] MEDS: CEFTRIAXONE 2 GM in DEXTROSE 5%-WATER 100 ML IVPB SCH (09:24)
[2020-09-16] MEDS: ACETAMINOPHEN 325 MG TABLET (FP) PO PRN ×2 (09:25→23:36)
[2020-09-16] MEDS: ALLOPURINOL 100 MG TABLET (FP) PO SCH (09:25)
[2020-09-16] MEDS: SODIUM CHLORIDE 0.45% 1,000 ML IV SCH ×2 (12:40→14:30)
[2020-09-16 12:43] LABS: CALCIUM 8.1 mg/dL (8.5-10.1)
[2020-09-16 12:44] LABS: BLOOD UREA NITROGEN 64.8 mg/dL (7-18)
[2020-09-16] MEDS ORDERED: PT OWN MED DRAWER 7, Y5N ONE ×2 (13:19→21:01)
[2020-09-16] MEDS: valACYclovir HCL 500 MG TABLET (FP) PO SCH (14:02)
[2020-09-16] MEDS ORDERED: oxyCODONE HCL 5 MG TABLET PO PRN (18:43)
[2020-09-16] MEDS ORDERED: ACETAMINOPHEN 1000 MG/100 ML VIAL (NON FORMULARY) IVPB PRN (18:43)
[2020-09-16] MEDS: DOCUSATE SODIUM 100 MG CAPSULE (FP) PO SCH (21:07)
[2020-09-16] MEDS: ROSUVASTATIN CA 5 MG TABLET (FP) PO SCH (21:07)
[2020-09-16] MEDS: CHLORHEXIDINE GLUCONATE 4% CLEANSER FOR DECOLONIZATION TP SCH (21:07)
[2020-09-17 05:58] LABS: EOS % 1.1 % (0-4.5); HEMATOCRIT 25.9 % (35.4-49); HEMOGLOBIN 8.2 GM/dL (11.7-16.9); LYMPH % 12.1 % (8-40); MCH 25.7 pg (25.7-33.7); MCHC 31.6 g/dl (32.0-35.9); MEAN CELL VOLUME 81.5 fl (80-96); MEAN PLT VOLUME 7.8 fl (7.5-11.1); MONO % 10.2 % (3.8-10.2); NEUT % 74.6 % (42.8-82.8); PLATELET COUNT 527 10^3/uL (134-434); RBC 3.17 M/mm3 (4.00-5.60); RDW 17.1 % (11.9-15.9); WHITE BLOOD COUNT 9.4 K/mm3 (4.0-10.0)
[2020-09-17 06:20] LABS: ALBUMIN 1.9 g/dl (3.4-5.0); BLOOD UREA NITROGEN 65.8 mg/dL (7-18); CALCIUM 8.4 mg/dL (8.5-10.1)
[2020-09-17 06:23] LABS: CREATININE 3.9 mg/dL (0.55-1.3)
[2020-09-17 06:25] LABS: BILIRUBIN,TOTAL 0.3 mg/dL (0.2-1); TOT PROT 6.1 g/dl (6.4-8.2)
[2020-09-17] MEDS ORDERED: DEXTROSE 5%-WATER 100 ML IVPB ONE (09:37)
[2020-09-17] MEDS: POLYETHYLENE GLYCOL (HEALTHYLAX) 3350 17 GM PACKET PO SCH ×2 (10:06→21:32)
[2020-09-17] MEDS: CEFTRIAXONE 2 GM in DEXTROSE 5%-WATER 100 ML IVPB SCH (10:06)
[2020-09-17] MEDS: SODIUM ZIRCONIUM CYCLOSILICATE (LOKELMA) 5 GM PACKET PO SCH (10:06)
[2020-09-17] MEDS: SODIUM BICARBONATE 650 MG TABLET PO SCH ×2 (10:06→21:27)
[2020-09-17] MEDS: SENNOSIDES 8.6MG TABLET (FP) PO SCH ×2 (10:07→21:33)
[2020-09-17] MEDS: PANTOPRAZOLE 40 MG TABLET PO SCH (10:08)
[2020-09-17] MEDS: ALLOPURINOL 100 MG TABLET (FP) PO SCH (10:08)
[2020-09-17] MEDS: ASPIRIN 81 MG CHEWABLE TABLETS PO SCH (11:06)
[2020-09-17] MEDS: valACYclovir HCL 500 MG TABLET (FP) PO SCH (14:29)
[2020-09-17] MEDS: SODIUM CHLORIDE 0.45% 1,000 ML IV SCH (17:20)
[2020-09-17] MEDS: ACETAMINOPHEN 325 MG TABLET (FP) PO PRN (17:26)
[2020-09-17 19:16] LABS: EPI CELLS 2 /uL (0-25.1); HYALINE CASTS 13 /uL (0-3.1); PH,URINE 5.5 (5.0-8.0); URINE APPEARANCE TURBID; URINE BACTERIA 2 /uL (0-1359); URINE BILIRUBIN 1+ (NEGATIVE); URINE COLOR RED; URINE GLUCOSE (UA) NEGATIVE (NEGATIVE); URINE KETONE NEGATIVE (NEGATIVE); URINE LEUK ESTERASE 3+ (NEGATIVE); URINE NITRITE NEGATIVE (NEGATIVE); URINE PROTEIN 2+ (NEGATIVE); URINE UROBILINOGEN 0.2 mg/dL (0.2-1.0); URINE WBC 802 /uL (0-25.8)
[2020-09-17] MEDS ORDERED: PT OWN MED DRAWER 7, Y5N ONE (21:15)
[2020-09-17] MEDS: ROSUVASTATIN CA 5 MG TABLET (FP) PO SCH (21:27)
[2020-09-17] MEDS: CHLORHEXIDINE GLUCONATE 4% CLEANSER FOR DECOLONIZATION TP SCH (21:32)
[2020-09-17] MEDS: DOCUSATE SODIUM 100 MG CAPSULE (FP) PO SCH (21:32)
[2020-09-17 22:02] LABS: URINE RBC 31022.9 /uL (0-23.9)
[2020-09-18 06:40] LABS: BASO % 1.8 % (0-2.0); HEMATOCRIT 24.6 % (35.4-49); HEMOGLOBIN 7.8 GM/dL (11.7-16.9); LYMPH % 9.8 % (8-40); MCH 25.4 pg (25.7-33.7); MCHC 31.6 g/dl (32.0-35.9); MEAN CELL VOLUME 80.4 fl (80-96); MEAN PLT VOLUME 7.9 fl (7.5-11.1); MONO % 8.4 % (3.8-10.2); PLATELET COUNT 524 10^3/uL (134-434); RBC 3.06 M/mm3 (4.00-5.60); WHITE BLOOD COUNT 8.9 K/mm3 (4.0-10.0)
[2020-09-18 06:42] LABS: BLOOD UREA NITROGEN 63.8 mg/dL (7-18); CALCIUM 7.9 mg/dL (8.5-10.1); MAGNESIUM 1.8 mg/dL (1.8-2.4)
[2020-09-18 06:45] LABS: CREATININE 3.6 mg/dL (0.55-1.3)
[2020-09-18 06:46] LABS: BILIRUBIN,TOTAL 0.3 mg/dL (0.2-1); TOT PROT 6.6 g/dl (6.4-8.2)
[2020-09-18] MEDS ORDERED: MAGNESIUM OXIDE 400 MG TABLET (FP) PO ONE (07:31)
[2020-09-18] MEDS ORDERED: DEXTROSE 5%-WATER 100 ML IVPB ONE (09:47)
[2020-09-18] MEDS: SODIUM BICARBONATE 650 MG TABLET PO SCH ×2 (09:50→22:09)
[2020-09-18] MEDS: POLYETHYLENE GLYCOL (HEALTHYLAX) 3350 17 GM PACKET PO SCH ×2 (09:50→22:10)
[2020-09-18] MEDS: PANTOPRAZOLE 40 MG TABLET PO SCH (09:50)
[2020-09-18] MEDS: SODIUM ZIRCONIUM CYCLOSILICATE (LOKELMA) 5 GM PACKET PO SCH (09:50)
[2020-09-18] MEDS: CEFTRIAXONE 2 GM in DEXTROSE 5%-WATER 100 ML IVPB SCH (09:51)
[2020-09-18] MEDS: SENNOSIDES 8.6MG TABLET (FP) PO SCH ×2 (09:51→22:10)
[2020-09-18] MEDS: ALLOPURINOL 100 MG TABLET (FP) PO SCH (09:51)
[2020-09-18] MEDS: ASPIRIN 81 MG CHEWABLE TABLETS PO SCH (10:42)
[2020-09-18] MEDS ORDERED: PT OWN MED DRAWER 7, Y5N ONE ×2 (14:42→16:30)
[2020-09-18] MEDS: valACYclovir HCL 500 MG TABLET (FP) PO SCH (16:32)
[2020-09-18] MEDS ORDERED: ACETAMINOPHEN 1000 MG/100 ML VIAL (NON FORMULARY) IVPB PRN (16:41)
[2020-09-18] MEDS: SODIUM CHLORIDE 0.45% 1,000 ML IV SCH (17:12)
[2020-09-18] MEDS: DOCUSATE SODIUM 100 MG CAPSULE (FP) PO SCH (22:09)
[2020-09-18] MEDS: ROSUVASTATIN CA 5 MG TABLET (FP) PO SCH (22:09)
[2020-09-18] MEDS: LACTOBACILLUS ACIDOPHILUS 1 TABLET PO SCH (22:09)
[2020-09-18] MEDS: CHLORHEXIDINE GLUCONATE 4% CLEANSER FOR DECOLONIZATION TP SCH (22:10)
[2020-09-19 07:30] LABS: BASO % 1.2 % (0-2.0); HEMATOCRIT 23.7 % (35.4-49); HEMOGLOBIN 7.7 GM/dL (11.7-16.9); MCH 26.1 pg (25.7-33.7); MCHC 32.6 g/dl (32.0-35.9); MEAN CELL VOLUME 80.2 fl (80-96); MEAN PLT VOLUME 7.7 fl (7.5-11.1); NEUT % 79.8 % (42.8-82.8); PLATELET COUNT 470 10^3/uL (134-434); RBC 2.95 M/mm3 (4.00-5.60); RDW 16.7 % (11.9-15.9); WHITE BLOOD COUNT 8.7 K/mm3 (4.0-10.0)
[2020-09-19 07:57] LABS: ALBUMIN 1.8 g/dl (3.4-5.0); BLOOD UREA NITROGEN 59.7 mg/dL (7-18); CALCIUM 8.3 mg/dL (8.5-10.1); MAGNESIUM 2.2 mg/dL (1.8-2.4)
[2020-09-19 08:00] LABS: CREATININE 3.1 mg/dL (0.55-1.3)
[2020-09-19 08:01] LABS: BILIRUBIN,TOTAL 0.4 mg/dL (0.2-1)
[2020-09-19 08:02] LABS: TOT PROT 6.4 g/dl (6.4-8.2)
[2020-09-19] MEDS ORDERED: DEXTROSE 5%-WATER 100 ML IVPB ONE (09:04)
[2020-09-19] MEDS ORDERED: CEFTRIAXONE 2 GM in DEXTROSE 5%-WATER 2 GM/100 ML BAG IVPB SCH (10:00)
[2020-09-19] MEDS: SODIUM ZIRCONIUM CYCLOSILICATE (LOKELMA) 5 GM PACKET PO SCH (10:16)
[2020-09-19] MEDS: LACTOBACILLUS ACIDOPHILUS 1 TABLET PO SCH ×2 (10:17→21:15)
[2020-09-19] MEDS: PANTOPRAZOLE 40 MG TABLET PO SCH (10:17)
[2020-09-19] MEDS: SODIUM BICARBONATE 650 MG TABLET PO SCH ×2 (10:17→21:15)
[2020-09-19] MEDS: ASPIRIN 81 MG CHEWABLE TABLETS PO SCH (10:17)
[2020-09-19] MEDS: SENNOSIDES 8.6MG TABLET (FP) PO SCH ×2 (10:17→21:16)
[2020-09-19] MEDS: POLYETHYLENE GLYCOL (HEALTHYLAX) 3350 17 GM PACKET PO SCH ×2 (10:17→21:16)
[2020-09-19] MEDS: ALLOPURINOL 100 MG TABLET (FP) PO SCH (10:22)
[2020-09-19 10:45] LABS: ANISOCYTOSIS 0; MACROCYTOSIS 0; PLATELET ESTIMATE NORMAL
[2020-09-19 14:23] VITALS: BMI 32.3
[2020-09-19] MEDS: valACYclovir HCL 500 MG TABLET (FP) PO SCH (15:12)
[2020-09-19] MEDS: HEPARIN NA (PORCINE) 5,000 UNITS/ML 1ML VIAL SQ SCH ×2 (15:14→21:16)
[2020-09-19] MEDS: ACETAMINOPHEN 325 MG TABLET (FP) PO PRN (15:14)
[2020-09-19] MEDS ORDERED: oxyCODONE HCL 5 MG TABLET PO PRN (16:36)
[2020-09-19] MEDS ORDERED: ACETAMINOPHEN 1000 MG/100 ML VIAL (NON FORMULARY) IVPB PRN (16:36)
[2020-09-19] MEDS ORDERED: ALBUTEROL SO4 2.5/IPRATROPIUM 0.5 INH SOL 3 ML VIAL.NEB. NEB PRN (16:36)
[2020-09-19] MEDS ORDERED: ONDANSETRON 4 MG/2 ML VIAL IVPUSH PRN (16:36)
[2020-09-19] MEDS: SODIUM CHLORIDE 0.45% 1,000 ML IV SCH (17:18)
[2020-09-19] MEDS: ROSUVASTATIN CA 5 MG TABLET (FP) PO SCH (21:13)
[2020-09-19] MEDS: DOCUSATE SODIUM 100 MG CAPSULE (FP) PO SCH (21:13)
[2020-09-20] MEDS: HEPARIN NA (PORCINE) 5,000 UNITS/ML 1ML VIAL SQ SCH ×3 (06:23→21:19)
[2020-09-20] MEDS: ACETAMINOPHEN 325 MG TABLET (FP) PO PRN ×2 (07:00→17:08)
[2020-09-20] MEDS ORDERED: CEFTRIAXONE 2 GM in DEXTROSE 5%-WATER 2 GM/100 ML BAG IVPB SCH (10:00)
[2020-09-20] MEDS ORDERED: SODIUM ZIRCONIUM CYCLOSILICATE (LOKELMA) 5 GM PACKET PO SCH (10:00)
[2020-09-20 10:31] LABS: BASO % 3.6 % (0-2.0); EOS % 1.5 % (0-4.5); HEMATOCRIT 23.6 % (35.4-49); HEMOGLOBIN 7.3 GM/dL (11.7-16.9); LYMPH % 12.3 % (8-40); MCH 25.3 pg (25.7-33.7); MCHC 31.1 g/dl (32.0-35.9); MEAN CELL VOLUME 81.5 fl (80-96); MEAN PLT VOLUME 7.5 fl (7.5-11.1); MONO % 11.6 % (3.8-10.2); PLATELET COUNT 445 10^3/uL (134-434); RDW 17.2 % (11.9-15.9); WHITE BLOOD COUNT 7.8 K/mm3 (4.0-10.0)
[2020-09-20] MEDS: ASPIRIN 81 MG CHEWABLE TABLETS PO SCH (10:31)
[2020-09-20] MEDS: PANTOPRAZOLE 40 MG TABLET PO SCH (10:31)
[2020-09-20] MEDS: LACTOBACILLUS ACIDOPHILUS 1 TABLET PO SCH ×2 (10:31→21:16)
[2020-09-20] MEDS: ALLOPURINOL 100 MG TABLET (FP) PO SCH (10:31)
[2020-09-20] MEDS: SODIUM BICARBONATE 650 MG TABLET PO SCH ×2 (10:31→21:17)
[2020-09-20] MEDS: SENNOSIDES 8.6MG TABLET (FP) PO SCH ×2 (10:37→21:17)
[2020-09-20] MEDS: POLYETHYLENE GLYCOL (HEALTHYLAX) 3350 17 GM PACKET PO SCH ×2 (10:37→21:18)
[2020-09-20 10:59] LABS: CALCIUM 8.4 mg/dL (8.5-10.1)
[2020-09-20 11:00] LABS: ALBUMIN 1.8 g/dl (3.4-5.0); BLOOD UREA NITROGEN 55.2 mg/dL (7-18); MAGNESIUM 2.2 mg/dL (1.8-2.4)
[2020-09-20 11:03] LABS: CREATININE 2.9 mg/dL (0.55-1.3)
[2020-09-20 11:04] LABS: BILIRUBIN,TOTAL 0.3 mg/dL (0.2-1)
[2020-09-20 11:05] LABS: TOT PROT 6.5 g/dl (6.4-8.2)
[2020-09-20] MEDS ORDERED: PT OWN MED DRAWER 7, Y5N ONE ×2 (11:08→12:24)
[2020-09-20] MEDS ORDERED: valACYclovir HCL 500 MG TABLET (FP) PO SCH (15:00)
[2020-09-20] MEDS: SODIUM CHLORIDE 0.45% 1,000 ML IV SCH (15:14)
[2020-09-20] MEDS ORDERED: ACETAMINOPHEN 500 MG TABLET (FP) PO PRN (16:48)
[2020-09-20] MEDS: FERROUS SO4 325 MG TABLET (FP) PO SCH (17:09)
[2020-09-20] MEDS: ROSUVASTATIN CA 5 MG TABLET (FP) PO SCH (21:17)
[2020-09-20] MEDS: DOCUSATE SODIUM 100 MG CAPSULE (FP) PO SCH (21:17)
[2020-09-21] MEDS: ACETAMINOPHEN 325 MG TABLET (FP) PO PRN (01:55)
[2020-09-21] MEDS: HEPARIN NA (PORCINE) 5,000 UNITS/ML 1ML VIAL SQ SCH ×3 (06:31→21:23)
[2020-09-21 08:25] LABS: BASO % 2.9 % (0-2.0); EOS % 1.2 % (0-4.5); HEMATOCRIT 29.1 % (35.4-49); LYMPH % 13.1 % (8-40); MCH 25.5 pg (25.7-33.7); MCHC 30.8 g/dl (32.0-35.9); MEAN CELL VOLUME 82.8 fl (80-96); MEAN PLT VOLUME 8.1 fl (7.5-11.1); MONO % 12.5 % (3.8-10.2); NEUT % 70.3 % (42.8-82.8); PLATELET COUNT 493 10^3/uL (134-434); RBC 3.52 M/mm3 (4.00-5.60); RDW 17.3 % (11.9-15.9); WHITE BLOOD COUNT 8.8 K/mm3 (4.0-10.0)
[2020-09-21 09:00] LABS: BLOOD UREA NITROGEN 59.6 mg/dL (7-18)
[2020-09-21 09:01] LABS: CALCIUM 8.8 mg/dL (8.5-10.1); MAGNESIUM 2.3 mg/dL (1.8-2.4)
[2020-09-21 09:04] LABS: BILIRUBIN,TOTAL 0.4 mg/dL (0.2-1)
[2020-09-21 09:05] LABS: ALBUMIN 2.3 g/dl (3.4-5.0)
[2020-09-21] MEDS: LACTOBACILLUS ACIDOPHILUS 1 TABLET PO SCH ×2 (09:14→21:25)
[2020-09-21] MEDS: FERROUS SO4 325 MG TABLET (FP) PO SCH ×3 (09:14→17:53)
[2020-09-21] MEDS: SODIUM BICARBONATE 650 MG TABLET PO SCH ×2 (09:14→21:25)
[2020-09-21] MEDS: SENNOSIDES 8.6MG TABLET (FP) PO SCH ×3 (09:14→21:25)
[2020-09-21] MEDS: ASPIRIN 81 MG CHEWABLE TABLETS PO SCH (09:14)
[2020-09-21] MEDS: MULTIVITAMINS (DAILY MVI) TABLET (FP) PO SCH (09:14)
[2020-09-21] MEDS: PANTOPRAZOLE 40 MG TABLET PO SCH (09:14)
[2020-09-21] MEDS: POLYETHYLENE GLYCOL (HEALTHYLAX) 3350 17 GM PACKET PO SCH ×2 (09:15→21:25)
[2020-09-21] MEDS: ALLOPURINOL 100 MG TABLET (FP) PO SCH (09:15)
[2020-09-21] MEDS: FOLIC ACID 1 MG TABLET (FP) PO SCH (09:15)
[2020-09-21] MEDS ORDERED: morphine SO4 SUSTAINED ACTING 15 MG TABLET.SA PO SCH (10:00)
[2020-09-21] MEDS: SODIUM ZIRCONIUM CYCLOSILICATE (LOKELMA) 5 GM PACKET PO SCH ×2 (10:25→21:26)
[2020-09-21] MEDS ORDERED: PT OWN MED DRAWER 7, Y5N ONE ×2 (12:13→21:17)
[2020-09-21] MEDS: ROSUVASTATIN CA 5 MG TABLET (FP) PO SCH (21:24)
[2020-09-21] MEDS: DOCUSATE SODIUM 100 MG CAPSULE (FP) PO SCH (21:25)
[2020-09-22] MEDS: ACETAMINOPHEN 325 MG TABLET (FP) PO PRN ×2 (00:43→19:52)
[2020-09-22] MEDS: HEPARIN NA (PORCINE) 5,000 UNITS/ML 1ML VIAL SQ SCH ×3 (05:56→21:31)
[2020-09-22] MEDS ORDERED: PT OWN MED DRAWER 7, Y5N ONE ×2 (09:10→21:22)
[2020-09-22] MEDS: MULTIVITAMINS (DAILY MVI) TABLET (FP) PO SCH (10:04)
[2020-09-22] MEDS: SODIUM BICARBONATE 650 MG TABLET PO SCH ×2 (10:04→21:32)
[2020-09-22] MEDS: LACTOBACILLUS ACIDOPHILUS 1 TABLET PO SCH ×2 (10:05→21:32)
[2020-09-22] MEDS: SENNOSIDES 8.6MG TABLET (FP) PO SCH ×3 (10:05→21:42)
[2020-09-22] MEDS: ALLOPURINOL 100 MG TABLET (FP) PO SCH (10:05)
[2020-09-22] MEDS: POLYETHYLENE GLYCOL (HEALTHYLAX) 3350 17 GM PACKET PO SCH ×2 (10:05→21:40)
[2020-09-22] MEDS: FOLIC ACID 1 MG TABLET (FP) PO SCH (10:05)
[2020-09-22] MEDS: SODIUM ZIRCONIUM CYCLOSILICATE (LOKELMA) 5 GM PACKET PO SCH ×2 (10:05→21:33)
[2020-09-22] MEDS: PANTOPRAZOLE 40 MG TABLET PO SCH (10:05)
[2020-09-22] MEDS: FERROUS SO4 325 MG TABLET (FP) PO SCH ×3 (10:05→18:36)
[2020-09-22] MEDS: ASPIRIN 81 MG CHEWABLE TABLETS PO SCH (10:05)
[2020-09-22 21:29] VITALS: BP 109/63; PULSE 93; TEMP 98.9
[2020-09-22] MEDS: DOCUSATE SODIUM 100 MG CAPSULE (FP) PO SCH ×2 (21:31→21:41)
[2020-09-22] MEDS: ROSUVASTATIN CA 5 MG TABLET (FP) PO SCH (21:33)
== END 2020-09-22 23:55 | DRG 853 ==
LOC: JER 15:12 → JERBED 18:02 → JICU 23:04 → J2W 09-05 00:36 → J6S 09-19 16:17
PROVIDERS: ADMIT Internal Medicine; ATTEND Nurse Practitioner Acute Care
PROC: 0T788DZ Dilation of Bilateral Ureters with Intraluminal Device, Via Natural or Artificial Opening Endoscopic (ICD-10-PCS; principal; 2020-09-09 08:00)
PROC: BT14ZZZ Fluoroscopy of Kidneys, Ureters and Bladder (ICD-10-PCS; 2020-09-09 08:00)
DX: A41.51 Sepsis due to Escherichia coli [E. coli] (principal); R65.21 Severe sepsis with septic shock; N13.6 Pyonephrosis; I24.8 Other forms of acute ischemic heart disease; N17.9 Acute kidney failure, unspecified; E87.2 Acidosis; B02.8 Zoster with other complications; N39.0 Urinary tract infection, site not specified; E78.5 Hyperlipidemia, unspecified; N18.9 Chronic kidney disease, unspecified; D69.6 Thrombocytopenia, unspecified; I95.9 Hypotension, unspecified; Z95.1 Presence of aortocoronary bypass graft; I12.9 Hypertensive chronic kidney disease with stage 1 through stage 4 chronic kidney disease, or unspecified chronic kidney disease; I35.0 Nonrheumatic aortic (valve) stenosis; E66.9 Obesity, unspecified; Z68.26 Body mass index [BMI] 26.0-26.9, adult; R31.9 Hematuria, unspecified; E87.5 Hyperkalemia; I25.119 Atherosclerotic heart disease of native coronary artery with unspecified angina pectoris; D64.9 Anemia, unspecified
CPT/HCPCS: 36415; 36600; 71045-TC-FY; 74176-TC; 76775-TC; 76856-TC; 80048; 80053; 80061; 80074; 81003; 82436; 82550; 82553; 82570; 82607; 82728; 82746; 82803; 83520; 83540; 83550; 83605; 83615; 83721; 83735; 83930; 83935; 83970; 84100; 84300; 84443; 84484; 84550; 85025; 85045; 85610; 85730; 86038; 86256; 87040; 87086; 87186; 87324; 87449; 87804; 93005; 93010; 93306-TC; 93971; 94010; 94640; 94760; 97116-GP; 97161-GP; 99285-25; C9803; J0131; J1644; U0003; U0005

== ENCOUNTER 2021-02-15 07:39 | Inpatient (IN) | payer OTHER, MEDICARE ==
[2021-02-15 07:48] VITALS: BMI 30.5
[2021-02-15 09:37] LABS: BASO % 1.5 % (0-2.0); EOS % 3.1 % (0-4.5); HEMATOCRIT 18.9 % (35.4-49); LYMPH % 23.2 % (8-40); MCH 26.3 pg (25.7-33.7); MCHC 31.7 g/dl (32.0-35.9); MEAN CELL VOLUME 83.2 fl (80-96); MEAN PLT VOLUME 7.6 fl (7.5-11.1); MONO % 9.7 % (3.8-10.2); NEUT % 62.5 % (42.8-82.8); PLATELET COUNT 293 10^3/uL (134-434); RBC 2.28 M/mm3 (4.00-5.60); RDW 15.2 % (11.9-15.9); WHITE BLOOD COUNT 6.9 K/mm3 (4.0-10.0)
[2021-02-15 09:43] LABS: INR 1.02 (0.83-1.09); PROTHROMBIN TIME (PATIENT) 11.9 SEC (9.7-13.0)
[2021-02-15 10:05] LABS: CHLORIDE 118 mmol/L (98-107); SODIUM 146 mmol/L (136-145)
[2021-02-15 10:07] LABS: CALCIUM 8.9 mg/dL (8.5-10.1)
[2021-02-15 10:08] LABS: ALBUMIN 3.2 g/dl (3.4-5.0); ANION GAP 9 MMOL/L (8-16); BLOOD UREA NITROGEN 43.2 mg/dL (7-18); CO2 19 mmol/L (21-32); GLUCOSE,RANDOM 114 mg/dL (74-106)
[2021-02-15 10:11] LABS: CREATININE 2.6 mg/dL (0.55-1.3); SGOT/AST 18 U/L (15-37); SGPT/ALT 19 U/L (13-61)
[2021-02-15 10:12] LABS: BILIRUBIN,TOTAL 0.3 mg/dL (0.2-1); TOT PROT 6.6 g/dl (6.4-8.2)
[2021-02-15 10:14] LABS: ALK PHOS 84 U/L (45-117)
[2021-02-15] MEDS ORDERED: ASPIRIN 81 MG CHEWABLE TABLETS PO ONE (10:59)
[2021-02-15] MEDS ORDERED: ACETAMINOPHEN 500 MG TABLET (FP) PO PRN (11:20)
[2021-02-15] MEDS: ROSUVASTATIN CA 5 MG TABLET (FP) PO SCH (21:18)
[2021-02-15 22:15] LABS: EOS % 2.1 % (0-4.5); HEMATOCRIT 22.9 % (35.4-49); HEMOGLOBIN 7.5 GM/dL (11.7-16.9); LYMPH % 17.7 % (8-40); MCHC 32.7 g/dl (32.0-35.9); MEAN CELL VOLUME 82.5 fl (80-96); MEAN PLT VOLUME 7.3 fl (7.5-11.1); MONO % 9.8 % (3.8-10.2); NEUT % 69.4 % (42.8-82.8); PLATELET COUNT 283 10^3/uL (134-434); RBC 2.78 M/mm3 (4.00-5.60); WHITE BLOOD COUNT 8.4 K/mm3 (4.0-10.0)
[2021-02-16 08:46] LABS: BASO % 1.2 % (0-2.0); EOS % 4.8 % (0-4.5); HEMOGLOBIN 9.3 GM/dL (11.7-16.9); LYMPH % 21.4 % (8-40); MCH 27.5 pg (25.7-33.7); MCHC 33.1 g/dl (32.0-35.9); MEAN CELL VOLUME 83.1 fl (80-96); MEAN PLT VOLUME 7.2 fl (7.5-11.1); MONO % 10.2 % (3.8-10.2); NEUT % 62.4 % (42.8-82.8); PLATELET COUNT 282 10^3/uL (134-434); RBC 3.37 M/mm3 (4.00-5.60); RDW 14.7 % (11.9-15.9); WHITE BLOOD COUNT 7.4 K/mm3 (4.0-10.0)
[2021-02-16 09:46] LABS: ERYTHROCYTE SEDIMENTATION RATE 23 mm/hr (0-20)
[2021-02-16 09:47] LABS: ALBUMIN 3.3 g/dl (3.4-5.0); BLOOD UREA NITROGEN 34.9 mg/dL (7-18)
[2021-02-16 09:50] LABS: CREATININE 2.4 mg/dL (0.55-1.3)
[2021-02-16 09:51] LABS: BILIRUBIN,TOTAL 0.5 mg/dL (0.2-1); TOT PROT 6.6 g/dl (6.4-8.2)
[2021-02-16] MEDS ORDERED: ALLOPURINOL 100 MG TABLET (FP) PO SCH (10:00)
[2021-02-16] MEDS ORDERED: ASPIRIN 81 MG CHEWABLE TABLETS ONE (10:31)
[2021-02-16] MEDS ORDERED: PANTOPRAZOLE 20 MG TABLET PO ONE (10:32)
[2021-02-16] MEDS: ASPIRIN 81 MG CHEWABLE TABLETS PO SCH (10:46)
[2021-02-16] MEDS: PANTOPRAZOLE 20 MG TABLET PO SCH (10:46)
[2021-02-16 12:09] LABS: EPI CELLS 2 /uL (0-25.1); HYALINE CASTS 0 /uL (0-3.1); URINE APPEARANCE CLEAR; URINE BACTERIA 0 /uL (0-1359); URINE BILIRUBIN NEGATIVE (NEGATIVE); URINE COLOR YELLOW; URINE GLUCOSE (UA) NEGATIVE (NEGATIVE); URINE KETONE NEGATIVE (NEGATIVE); URINE LEUK ESTERASE NEGATIVE (NEGATIVE); URINE NITRITE NEGATIVE (NEGATIVE); URINE PROTEIN 1+ (NEGATIVE); URINE RBC 1 /uL (0-23.9); URINE UROBILINOGEN 0.2 mg/dL (0.2-1.0); URINE WBC 2 /uL (0-25.8)
[2021-02-16] MEDS ORDERED: IRON SUCROSE INJECTION 200 MG in SODIUM CHLORIDE 90 ML IVPB ONE (14:00)
[2021-02-16] MEDS: ROSUVASTATIN CA 5 MG TABLET (FP) PO SCH (22:16)
[2021-02-17 06:55] VITALS: TEMP 98.5
[2021-02-17 08:37] LABS: CHLORIDE 112 mmol/L (98-107); SODIUM 143 mmol/L (136-145)
[2021-02-17 08:39] LABS: BASO % 1.2 % (0-2.0); EOS % 3.9 % (0-4.5); HEMATOCRIT 28.2 % (35.4-49); HEMOGLOBIN 9.4 GM/dL (11.7-16.9); LYMPH % 18.6 % (8-40); MCH 27.7 pg (25.7-33.7); MCHC 33.2 g/dl (32.0-35.9); MEAN CELL VOLUME 83.5 fl (80-96); MEAN PLT VOLUME 7.9 fl (7.5-11.1); MONO % 9.9 % (3.8-10.2); NEUT % 66.4 % (42.8-82.8); PLATELET COUNT 299 10^3/uL (134-434); RBC 3.38 M/mm3 (4.00-5.60); RDW 14.8 % (11.9-15.9); WHITE BLOOD COUNT 7.8 K/mm3 (4.0-10.0)
[2021-02-17 08:41] LABS: CALCIUM 9.4 mg/dL (8.5-10.1)
[2021-02-17 08:42] LABS: LDH 187 U/L (87-246)
[2021-02-17 08:42] LABS: ALBUMIN 3.5 g/dl (3.4-5.0); ANION GAP 7 MMOL/L (8-16); BLOOD UREA NITROGEN 33.8 mg/dL (7-18); CO2 24 mmol/L (21-32); GLUCOSE,RANDOM 104 mg/dL (74-106)
[2021-02-17 08:45] LABS: CREATININE 2.2 mg/dL (0.55-1.3); SGOT/AST 14 U/L (15-37); SGPT/ALT 18 U/L (13-61)
[2021-02-17 08:47] LABS: BILIRUBIN,TOTAL 0.7 mg/dL (0.2-1); TOT PROT 6.7 g/dl (6.4-8.2)
[2021-02-17 08:48] LABS: ALK PHOS 90 U/L (45-117)
[2021-02-17] MEDS ORDERED: IRON SUCROSE INJECTION 200 MG in SODIUM CHLORIDE 90 ML IVPB SCH (10:00)
[2021-02-17 10:20] LABS: HDL CHOLESTEROL 54 mg/dL (40-60)
[2021-02-17] MEDS ORDERED: PANTOPRAZOLE 20 MG TABLET PO ONE (11:05)
[2021-02-17] MEDS ORDERED: ASPIRIN 81 MG CHEWABLE TABLETS ONE (11:05)
[2021-02-17] MEDS: PANTOPRAZOLE 20 MG TABLET PO SCH (11:06)
[2021-02-17] MEDS: ASPIRIN 81 MG CHEWABLE TABLETS PO SCH ×2 (11:06→11:14)
[2021-02-17 13:11] VITALS: BP 124/78; PULSE 78
== END 2021-02-17 12:10 | disposition home or self-care (01) | DRG 812 ==
LOC: JER 07:39 → JERBED 11:19
PROVIDERS: ADMIT Internal Medicine; ATTEND Internal Medicine
PROC: 30233N1 Transfusion of Nonautologous Red Blood Cells into Peripheral Vein, Percutaneous Approach (ICD-10-PCS; principal; 2021-02-15)
DX: D50.0 Iron deficiency anemia secondary to blood loss (chronic) (principal); I24.8 Other forms of acute ischemic heart disease; D64.9 Anemia, unspecified; E78.5 Hyperlipidemia, unspecified; M48.00 Spinal stenosis, site unspecified; I25.10 Atherosclerotic heart disease of native coronary artery without angina pectoris; M10.9 Gout, unspecified; I12.9 Hypertensive chronic kidney disease with stage 1 through stage 4 chronic kidney disease, or unspecified chronic kidney disease; N18.9 Chronic kidney disease, unspecified; K21.9 Gastro-esophageal reflux disease without esophagitis; I35.0 Nonrheumatic aortic (valve) stenosis; R07.89 Other chest pain; R77.8 Other specified abnormalities of plasma proteins; Z85.46 Personal history of malignant neoplasm of prostate; Z90.5 Acquired absence of kidney; Z95.1 Presence of aortocoronary bypass graft
CPT/HCPCS: 36415; 36430; 36511; 71045-TC-FY; 80053; 81003; 82272; 82607; 82728; 82746; 83010; 83540; 83615; 83718; 83880; 84155; 84165; 84443; 84484; 85025; 85045; 85610; 85651; 85730; 86850; 86900; 86901; 86922; 93005; 93010; 93306-TC; 99285-25; C9803; J1756; P9038; P9058; U0003; U0005

== ENCOUNTER 2021-08-25 06:07 | Day surgery (SDC) | payer OTHER, MEDICARE ==
[2021-08-20 10:55] VITALS: BMI 29.8
[2021-08-25] MEDS ORDERED: ceFAZolin SODIUM 1 GM VIAL ONE ×2 (07:05→08:07)
[2021-08-25] MEDS ORDERED: EPINEPHrine/PF 1 MG/1 ML (1:1,000) AMPULE ONE (07:05)
[2021-08-25] MEDS ORDERED: TETRACAINE 0.5% OPHTH SOLN 2 ML BOTTLE ONE (07:06)
[2021-08-25] MEDS ORDERED: BUPIVACAINE HCL 50 ML ONE (07:06)
[2021-08-25] MEDS ORDERED: POVIDONE-IODINE 5% OPHTHALMIC PREP 30 ML SOLUTION ONE (07:06)
[2021-08-25] MEDS ORDERED: ERYTHROMYCIN 0.5% OPHTHALMIC OINTMENT 3.5 GM TUBE ONE (07:11)
[2021-08-25] MEDS ORDERED: LIDOCAINE HCL 1%, 10 MG/ML (20ML VIAL) ONE (07:16)
[2021-08-25] MEDS ORDERED: PROPOFOL 20 ML ONE (07:34)
[2021-08-25] MEDS ORDERED: MIDAZOLAM HCL 2 MG/2 ML SINGLE DOSE VIAL ONE ×2 (07:34→08:48)
[2021-08-25] MEDS ORDERED: KETOROLAC TROMETHAMINE 30 MG/1 ML VIAL ONE (08:07)
[2021-08-25] MEDS ORDERED: DEXAMETHASONE SOD PHOSPHATE 4 MG/1 ML VIAL ONE (08:07)
[2021-08-25] MEDS ORDERED: ONDANSETRON 4 MG/2 ML VIAL ONE (08:07)
[2021-08-25] MEDS ORDERED: oxyCODONE HCL 5 MG TABLET PO PRN ×2 (09:13)
[2021-08-25] MEDS ORDERED: ONDANSETRON 4 MG/2 ML VIAL IVPUSH PRN (09:13)
[2021-08-25 09:58] VITALS: PULSE 82; TEMP 96.8
[2021-08-25 10:43] VITALS: BP 122/62
== END 2021-08-25 10:45 | disposition home or self-care (01) ==
LOC: FASU 06:07
PROVIDERS: ATTEND Ophthalmology
PROC: 0KX10Z1 Transfer Facial Muscle with Subcutaneous Tissue, Open Approach (ICD-10-PCS; 2021-08-25)
PROC: 08SQ0ZZ Reposition Right Lower Eyelid, Open Approach (ICD-10-PCS; 2021-08-25)
PROC: 0JB10ZZ Excision of Face Subcutaneous Tissue and Fascia, Open Approach (ICD-10-PCS; principal; 2021-08-25 08:12)
DX: C44.1022 Unspecified malignant neoplasm of skin of right lower eyelid, including canthus (principal); H02.89 Other specified disorders of eyelid
CPT/HCPCS: 94760

== ENCOUNTER 2022-03-19 18:40 | Inpatient (IN) | payer OTHER, MEDICARE ==
[2022-03-19 18:44] VITALS: BMI 31.1
[2022-03-19 20:30] LABS: BASO % 1.5 % (0-2.0); EOS % 2.7 % (0-4.5); LYMPH % 12.7 % (8-40); MCHC 30.2 g/dl (32.0-35.9); MEAN CELL VOLUME 89.3 fl (80-96); MEAN PLT VOLUME 7.1 fl (7.5-11.1); MONO % 6.5 % (3.8-10.2); NEUT % 76.6 % (42.8-82.8); PLATELET COUNT 283 10^3/uL (134-434); RBC 2.35 M/mm3 (4.00-5.60); RDW 15.3 % (11.9-15.9); WHITE BLOOD COUNT 5.6 K/mm3 (4.0-10.0)
[2022-03-19 20:36] LABS: HEMOGLOBIN 6.3 GM/dL (11.7-16.9)
[2022-03-19 20:40] LABS: INR 1.15 (0.83-1.09); PROTHROMBIN TIME (PATIENT) 13.3 SEC (9.7-13.0)
[2022-03-19 20:43] LABS: ACTIVATED PTT 30.3 SECONDS (25.2-36.5)
[2022-03-19 21:09] LABS: ALBUMIN 3.6 g/dl (3.4-5.0); BLOOD UREA NITROGEN 51.8 mg/dL (7-18); CALCIUM 8.6 mg/dL (8.5-10.1)
[2022-03-19] MEDS ORDERED: ASPIRIN 81 MG CHEWABLE TABLETS PO ONE (21:10)
[2022-03-19 21:12] LABS: CREATININE 2.7 mg/dL (0.55-1.3)
[2022-03-19 21:14] LABS: BILIRUBIN,TOTAL 0.3 mg/dL (0.2-1); TOT PROT 6.5 g/dl (6.4-8.2)
[2022-03-19 21:17] LABS: N-TERMINAL BNP 4702.9 pg/ml (5-125)
[2022-03-19] MEDS ORDERED: ASPIRIN 81 MG CHEWABLE TABLETS ONE (21:39)
[2022-03-20 09:18] LABS: BASO % 1.2 % (0-2.0); EOS % 4.3 % (0-4.5); HEMOGLOBIN 8.2 GM/dL (11.7-16.9); LYMPH % 16.8 % (8-40); MCH 27.2 pg (25.7-33.7); MCHC 31.5 g/dl (32.0-35.9); MEAN CELL VOLUME 86.3 fl (80-96); MEAN PLT VOLUME 7.2 fl (7.5-11.1); MONO % 7.2 % (3.8-10.2); NEUT % 70.5 % (42.8-82.8); PLATELET COUNT 295 10^3/uL (134-434); RBC 3.01 M/mm3 (4.00-5.60); RDW 16.5 % (11.9-15.9); WHITE BLOOD COUNT 6.5 K/mm3 (4.0-10.0)
[2022-03-20 09:35] LABS: ALBUMIN 3.7 g/dl (3.4-5.0); CALCIUM 8.8 mg/dL (8.5-10.1)
[2022-03-20 09:39] LABS: CREATININE 2.5 mg/dL (0.55-1.3)
[2022-03-20 09:40] LABS: TOT PROT 6.6 g/dl (6.4-8.2)
[2022-03-20] MEDS ORDERED: PANTOPRAZOLE 20 MG TABLET PO SCH (10:00)
[2022-03-20] MEDS ORDERED: FERROUS SO4 325 MG TABLET (FP) PO SCH (10:00)
[2022-03-20] MEDS ORDERED: PATIENT'S OWN MEDICATION (NON-FORMULARY) (Omeprazole 20 MG Capsule.Dr) PO SCH (10:00)
[2022-03-20] MEDS: ALLOPURINOL 100 MG TABLET (FP) PO SCH (10:02)
[2022-03-20] MEDS: ASPIRIN 81 MG CHEWABLE TABLETS PO SCH (10:02)
[2022-03-20 10:06] LABS: ERYTHROCYTE SEDIMENTATION RATE 23 mm/hr (0-20)
[2022-03-20] MEDS ORDERED: IRON SUCROSE INJECTION 200 MG in SODIUM CHLORIDE 90 ML IVPB ONE (13:00)
[2022-03-20 17:37] LABS: EPI CELLS 1 /uL (0-25.1); HYALINE CASTS 0 /uL (0-3.1); PH,URINE 5.5 (5.0-8.0); URINE APPEARANCE CLOUDY; URINE BACTERIA 5 /uL (0-1359); URINE BILIRUBIN NEGATIVE (NEGATIVE); URINE COLOR YELLOW; URINE GLUCOSE (UA) NEGATIVE (NEGATIVE); URINE KETONE NEGATIVE (NEGATIVE); URINE LEUK ESTERASE NEGATIVE (NEGATIVE); URINE NITRITE NEGATIVE (NEGATIVE); URINE PROTEIN 1+ (NEGATIVE); URINE RBC 2 /uL (0-23.9); URINE UROBILINOGEN 0.2 mg/dL (0.2-1.0); URINE WBC 2 /uL (0-25.8)
[2022-03-20] MEDS: PANTOPRAZOLE 40 MG TABLET PO SCH (21:25)
[2022-03-20] MEDS: ROSUVASTATIN CA 5 MG TABLET PO SCH (22:57)
[2022-03-21 04:00] VITALS: RESP 19
[2022-03-21 07:20] LABS: BASO % 2.1 % (0-2.0); EOS % 4.9 % (0-4.5); HEMATOCRIT 23.9 % (35.4-49); HEMOGLOBIN 7.6 GM/dL (11.7-16.9); LYMPH % 18.4 % (8-40); MCH 27.5 pg (25.7-33.7); MEAN CELL VOLUME 85.9 fl (80-96); MEAN PLT VOLUME 7.3 fl (7.5-11.1); MONO % 10.2 % (3.8-10.2); NEUT % 64.4 % (42.8-82.8); PLATELET COUNT 268 10^3/uL (134-434); RBC 2.78 M/mm3 (4.00-5.60); RDW 16.3 % (11.9-15.9); WHITE BLOOD COUNT 6.2 K/mm3 (4.0-10.0)
[2022-03-21 07:40] LABS: ALBUMIN 3.4 g/dl (3.4-5.0); BLOOD UREA NITROGEN 48.3 mg/dL (7-18); CALCIUM 8.8 mg/dL (8.5-10.1)
[2022-03-21 07:43] LABS: CREATININE 2.3 mg/dL (0.55-1.3)
[2022-03-21 07:45] LABS: BILIRUBIN,TOTAL 0.7 mg/dL (0.2-1); TOT PROT 6.1 g/dl (6.4-8.2)
[2022-03-21] MEDS ORDERED: FUROSEMIDE 40 MG/4 ML INJECTABLE VIAL IVPUSH SCH (08:35)
[2022-03-21] MEDS ORDERED: POLYETHYLENE GLYCOL (HEALTHYLAX) 3350 17 GM PACKET PO SCH (10:00)
[2022-03-21] MEDS: ALLOPURINOL 100 MG TABLET (FP) PO SCH (10:44)
[2022-03-21] MEDS: ASPIRIN 81 MG CHEWABLE TABLETS PO SCH (10:44)
[2022-03-21] MEDS: PANTOPRAZOLE 40 MG TABLET PO SCH ×2 (10:45→23:21)
[2022-03-21 16:40] LABS: BASO % 1.4 % (0-2.0); EOS % 3.7 % (0-4.5); HEMATOCRIT 28.7 % (35.4-49); HEMOGLOBIN 9.2 GM/dL (11.7-16.9); MCH 27.1 pg (25.7-33.7); MCHC 32.1 g/dl (32.0-35.9); MEAN CELL VOLUME 84.6 fl (80-96); MEAN PLT VOLUME 7.3 fl (7.5-11.1); NEUT % 65.9 % (42.8-82.8); PLATELET COUNT 286 10^3/uL (134-434); RDW 17.6 % (11.9-15.9); WHITE BLOOD COUNT 6.2 K/mm3 (4.0-10.0)
[2022-03-21 19:28] VITALS: BP 123/61; PULSE 101; TEMP 98.2
[2022-03-21] MEDS: ROSUVASTATIN CA 5 MG TABLET PO SCH (23:21)
[2022-03-22 20:11] LABS: GLIADIN ANTIBODY IGA 5 units (0-19); GLIADIN ANTIBODY IGG 3 units (0-19); TRANSGLUTAMINASE IGG < 2 U/mL (0-5)
== END 2022-03-21 21:00 | disposition home or self-care (01) | DRG 812 ==
LOC: JER 18:40 → JERBED 21:17 → J4S 03-20 06:53
PROVIDERS: ADMIT Internal Medicine; ATTEND Internal Medicine
PROC: 30233N1 Transfusion of Nonautologous Red Blood Cells into Peripheral Vein, Percutaneous Approach (ICD-10-PCS; principal; 2022-03-19)
DX: D64.9 Anemia, unspecified (principal); N17.9 Acute kidney failure, unspecified; I12.9 Hypertensive chronic kidney disease with stage 1 through stage 4 chronic kidney disease, or unspecified chronic kidney disease; N18.9 Chronic kidney disease, unspecified; I25.10 Atherosclerotic heart disease of native coronary artery without angina pectoris; K21.9 Gastro-esophageal reflux disease without esophagitis; E78.5 Hyperlipidemia, unspecified; D12.6 Benign neoplasm of colon, unspecified; K31.7 Polyp of stomach and duodenum; R06.09 Other forms of dyspnea
CPT/HCPCS: 36415; 36430; 71045-TC-FY; 76705-TC; 80053; 80061; 81003; 82550; 82570; 82607; 82728; 82784; 83036; 83516; 83540; 83550; 83880; 84156; 84443; 84484; 85025; 85045; 85610; 85651; 85730; 86850; 86900; 86901; 86922; 93005; 93010; 99285-25; C9803-CS; J1756; P9058; U0003; U0005

== ENCOUNTER 2023-01-30 00:10 | Inpatient (IN) | payer OTHER, MEDICARE ==
[2023-01-30] MEDS ORDERED: ALBUTEROL SO4 2.5/IPRATROPIUM 0.5 INH SOL 3 ML VIAL.NEB. NEB ONE (00:23)
[2023-01-30] MEDS ORDERED: DEXAMETHASONE SOD PHOSPHATE 10 MG/1 ML VIAL IVPUSH ONE (00:26)
[2023-01-30] MEDS ORDERED: NITROGLYCERIN SUBLINGUAL 1/150 0.4 MG TAB SL ONE (00:32)
[2023-01-30] MEDS ORDERED: DEXAMETHASONE SOD PHOSPHATE 10 MG/1 ML VIAL ONE (00:54)
[2023-01-30 01:03] LABS: BASO % 1.2 % (0-2.0); EOS % 1.8 % (0-4.5); HEMOGLOBIN 12.9 GM/dL (11.7-16.9); LYMPH % 4.4 % (8-40); MCH 30.6 pg (25.7-33.7); MCHC 33.2 g/dl (32.0-35.9); MEAN CELL VOLUME 92.1 fl (80-96); MEAN PLT VOLUME 7.8 fl (7.5-11.1); MONO % 7.4 % (3.8-10.2); NEUT % 85.2 % (42.8-82.8); PLATELET COUNT 240 10^3/uL (134-434); RBC 4.23 M/mm3 (4.00-5.60); RDW 14.6 % (11.9-15.9); WHITE BLOOD COUNT 8.3 K/mm3 (4.0-10.0)
[2023-01-30 01:12] LABS: INR 1.13 (0.83-1.09); PROTHROMBIN TIME (PATIENT) 13.1 SEC (9.7-13.0)
[2023-01-30] MEDS ORDERED: METOPROLOL TARTRATE 5 MG/5 ML VIAL IVPUSH ONE (01:18)
[2023-01-30] MEDS ORDERED: METOCLOPRAMIDE HCL INJECTION 10 MG/2 ML VIAL ONE (01:18)
[2023-01-30 01:24] LABS: CHLORIDE 111 mmol/L (98-107); POTASSIUM 4.8 mmol/L (3.5-5.1); SODIUM 139 mmol/L (136-145)
[2023-01-30 01:26] LABS: ALBUMIN 3.6 g/dl (3.4-5.0); ANION GAP 8 mmol/L (4-13); BLOOD UREA NITROGEN 42.8 mg/dL (7-18); CALCIUM 8.7 mg/dL (8.5-10.1); CO2 21 mmol/L (21-32); GLUCOSE,RANDOM 145 mg/dL (74-106)
[2023-01-30 01:29] LABS: CREATININE 2.4 mg/dL (0.55-1.3); SGPT/ALT 19 U/L (13-61)
[2023-01-30 01:30] LABS: SGOT/AST 23 U/L (15-37)
[2023-01-30 01:31] LABS: BILIRUBIN,TOTAL 0.5 mg/dL (0.2-1)
[2023-01-30 01:32] LABS: ALK PHOS 92 U/L (45-117)
[2023-01-30 01:38] LABS: VENOUS BASE EXCESS -5.6 mmol/L (-2-2); VENOUS PCO2 37.3 mmHg (38-52); VENOUS PH 7.338 (7.310-7.410)
[2023-01-30] MEDS ORDERED: FUROSEMIDE 40 MG/4 ML INJECTABLE VIAL IVPUSH ONE (01:54)
[2023-01-30] MEDS ORDERED: ASPIRIN 81 MG CHEWABLE TABLETS PO ONE (04:27)
[2023-01-30] MEDS ORDERED: ASPIRIN 81 MG CHEWABLE TABLETS ONE ×2 (04:33→09:27)
[2023-01-30] MEDS ORDERED: CLOPIDOGREL BISULFATE 300 MG TABLET PO ONE (04:42)
[2023-01-30] MEDS ORDERED: CLOPIDOGREL BISULFATE 300 MG TABLET ONE (04:54)
[2023-01-30] MEDS ORDERED: methylPREDNISolone NA SUCC 125 MG/2 ML VIAL ONE (07:11)
[2023-01-30] MEDS: methylPREDNISolone NA SUCC 40 MG/1 ML VIAL IVPUSH SCH ×2 (07:18→21:45)
[2023-01-30 08:32] LABS: HEMATOCRIT 37.5 % (35.4-49); HEMOGLOBIN 11.9 GM/dL (11.7-16.9); MCH 30.1 pg (25.7-33.7); MCHC 31.9 g/dl (32.0-35.9); MEAN CELL VOLUME 94.4 fl (80-96); MEAN PLT VOLUME 7.7 fl (7.5-11.1); PLATELET COUNT 226 10^3/uL (134-434); RBC 3.97 M/mm3 (4.00-5.60); RDW 14.4 % (11.9-15.9); WHITE BLOOD COUNT 6.2 K/mm3 (4.0-10.0)
[2023-01-30 08:49] LABS: POTASSIUM 4.8 mmol/L (3.5-5.1)
[2023-01-30 08:53] LABS: CALCIUM 8.7 mg/dL (8.5-10.1)
[2023-01-30 08:54] LABS: ALBUMIN 3.4 g/dl (3.4-5.0); BLOOD UREA NITROGEN 40.6 mg/dL (7-18)
[2023-01-30 08:57] LABS: CREATININE 2.2 mg/dL (0.55-1.3)
[2023-01-30 08:58] LABS: BILIRUBIN,TOTAL 0.5 mg/dL (0.2-1); TOT PROT 6.9 g/dl (6.4-8.2)
[2023-01-30 09:22] LABS: ANISOCYTOSIS 2+; MACROCYTOSIS 2+; OVALOCYTE 1+
[2023-01-30] MEDS ORDERED: PANTOPRAZOLE 20 MG TABLET PO ONE (09:27)
[2023-01-30] MEDS ORDERED: FERROUS SO4 325 MG TABLET (FP) ONE (09:27)
[2023-01-30] MEDS ORDERED: POLYETHYLENE GLYCOL (HEALTHYLAX) 3350 17 GM PACKET ONE (09:27)
[2023-01-30] MEDS ORDERED: AZITHROMYCIN IVPB 500 MG/250 ML BAG IVPB ONE (09:28)
[2023-01-30] MEDS ORDERED: HEPARIN NA (PORCINE) 5,000 UNITS/ML 1ML VIAL ONE (09:28)
[2023-01-30] MEDS ORDERED: CEFTRIAXONE 1 GM/50 ML BAG ONE (09:28)
[2023-01-30] MEDS: FERROUS SO4 325 MG TABLET (FP) PO SCH (09:45)
[2023-01-30] MEDS: POLYETHYLENE GLYCOL (HEALTHYLAX) 3350 17 GM PACKET PO SCH (09:45)
[2023-01-30] MEDS: ASPIRIN 81 MG CHEWABLE TABLETS PO SCH (09:45)
[2023-01-30] MEDS: AZITHROMYCIN IVPB 500 MG/250 ML BAG IVPB SCH (09:46)
[2023-01-30] MEDS: CEFTRIAXONE 1 GM in DEXTROSE 5%-WATER - 50 ML IVPB SCH (09:46)
[2023-01-30] MEDS: PANTOPRAZOLE 20 MG TABLET PO SCH (09:46)
[2023-01-30] MEDS: HEPARIN NA (PORCINE) 5,000 UNITS/ML 1ML VIAL SQ SCH ×2 (09:46→21:44)
[2023-01-30] MEDS: ALLOPURINOL 100 MG TABLET (FP) PO SCH (10:52)
[2023-01-30 14:46] VITALS: BMI 30.6
[2023-01-30] MEDS ORDERED: ACETAMINOPHEN 325 MG TABLET (FP) PO PRN (21:13)
[2023-01-30] MEDS: ROSUVASTATIN CA 5 MG TABLET PO SCH (21:45)
[2023-01-31 06:42] LABS: BASO % 0.2 % (0-2.0); HEMATOCRIT 37.5 % (35.4-49); LYMPH % 5.3 % (8-40); MCH 30.2 pg (25.7-33.7); MEAN CELL VOLUME 94.2 fl (80-96); MEAN PLT VOLUME 7.5 fl (7.5-11.1); MONO % 4.7 % (3.8-10.2); NEUT % 89.8 % (42.8-82.8); PLATELET COUNT 254 10^3/uL (134-434); RBC 3.98 M/mm3 (4.00-5.60); RDW 14.4 % (11.9-15.9); WHITE BLOOD COUNT 10.5 K/mm3 (4.0-10.0)
[2023-01-31 07:16] LABS: POTASSIUM 5.1 mmol/L (3.5-5.1)
[2023-01-31 07:18] LABS: BLOOD UREA NITROGEN 53.8 mg/dL (7-18); CALCIUM 8.7 mg/dL (8.5-10.1)
[2023-01-31 07:19] LABS: ALBUMIN 3.3 g/dl (3.4-5.0)
[2023-01-31 07:22] LABS: CREATININE 2.4 mg/dL (0.55-1.3)
[2023-01-31 07:24] LABS: BILIRUBIN,TOTAL 0.4 mg/dL (0.2-1); TOT PROT 6.6 g/dl (6.4-8.2)
[2023-01-31] MEDS: CEFTRIAXONE 1 GM in DEXTROSE 5%-WATER - 50 ML IVPB SCH (10:34)
[2023-01-31] MEDS: methylPREDNISolone NA SUCC 40 MG/1 ML VIAL IVPUSH SCH ×2 (10:34→20:59)
[2023-01-31] MEDS: ALLOPURINOL 100 MG TABLET (FP) PO SCH (10:34)
[2023-01-31] MEDS: FERROUS SO4 325 MG TABLET (FP) PO SCH (10:34)
[2023-01-31] MEDS: PANTOPRAZOLE 20 MG TABLET PO SCH (10:34)
[2023-01-31] MEDS: ASPIRIN 81 MG CHEWABLE TABLETS PO SCH (10:35)
[2023-01-31] MEDS: POLYETHYLENE GLYCOL (HEALTHYLAX) 3350 17 GM PACKET PO SCH (10:35)
[2023-01-31] MEDS: AZITHROMYCIN IVPB 500 MG/250 ML BAG IVPB SCH (11:43)
[2023-01-31] MEDS: ROSUVASTATIN CA 5 MG TABLET PO SCH (20:59)
[2023-02-01 08:58] VITALS: RESP 18
[2023-02-01] MEDS: ALLOPURINOL 100 MG TABLET (FP) PO SCH (10:50)
[2023-02-01] MEDS: PANTOPRAZOLE 20 MG TABLET PO SCH (10:50)
[2023-02-01] MEDS: CEFTRIAXONE 1 GM in DEXTROSE 5%-WATER - 50 ML IVPB SCH (10:50)
[2023-02-01] MEDS: methylPREDNISolone NA SUCC 40 MG/1 ML VIAL IVPUSH SCH (10:50)
[2023-02-01] MEDS: ASPIRIN 81 MG CHEWABLE TABLETS PO SCH (10:50)
[2023-02-01] MEDS: FERROUS SO4 325 MG TABLET (FP) PO SCH (10:50)
[2023-02-01] MEDS: POLYETHYLENE GLYCOL (HEALTHYLAX) 3350 17 GM PACKET PO SCH (10:51)
[2023-02-01] MEDS: AZITHROMYCIN IVPB 500 MG/250 ML BAG IVPB SCH (11:35)
[2023-02-01] MEDS ORDERED: SODIUM ZIRCONIUM CYCLOSILICATE (LOKELMA) 5 GM PACKET PO SCH (12:30)
[2023-02-01 14:00] VITALS: BP 139/70; PULSE 84; TEMP 97.9
== END 2023-02-01 16:17 | disposition home or self-care (01) | DRG 193 ==
LOC: JER 00:10 → JERBED 01:56 → J4S 14:41
PROVIDERS: ADMIT Internal Medicine; ATTEND Internal Medicine
DX: J12.1 Respiratory syncytial virus pneumonia (principal); I50.23 Acute on chronic systolic (congestive) heart failure; I24.89 Other forms of acute ischemic heart disease; I13.0 Hypertensive heart and chronic kidney disease with heart failure and stage 1 through stage 4 chronic kidney disease, or unspecified chronic kidney disease; E78.5 Hyperlipidemia, unspecified; I25.10 Atherosclerotic heart disease of native coronary artery without angina pectoris; Z95.1 Presence of aortocoronary bypass graft; K21.9 Gastro-esophageal reflux disease without esophagitis; N18.9 Chronic kidney disease, unspecified
CPT/HCPCS: 0241U-QW; 36415; 71045-TC-FY; 71250-TC; 80053; 80061; 82550; 82553; 82803; 83605; 83880; 84443; 84484; 85025; 85610; 85730; 87040; 93005; 93010; 93306-TC; 99285-25; J1100

== ENCOUNTER 2023-04-30 15:40 | Inpatient (IN) | payer OTHER, MEDICARE ==
[2023-04-30] MEDS ORDERED: NITROGLYCERIN 25MG/D5W 250ML 25 MG/250 ML ML IVPB ONE (15:46)
[2023-04-30] MEDS: NITROGLYCERIN 25MG/D5W 250ML 25 MG/250 ML ML IVPB SCH ×2 (15:55→17:33)
[2023-04-30] MEDS ORDERED: RAPID SEQUENCE INTUBATION KIT NR ONE (16:02)
[2023-04-30] MEDS ORDERED: SUCCINYLCHOLINE CHLORIDE 200 MG/10 ML SYRINGE ONE (16:02)
[2023-04-30] MEDS ORDERED: ETOMIDATE 40 MG/20 ML VIAL IVPUSH ONE (16:03)
[2023-04-30 16:26] LABS: HEMATOCRIT 46.1 % (35.4-49); HEMOGLOBIN 15.2 GM/dL (11.7-16.9); MEAN PLT VOLUME 8.3 fl (7.5-11.1); PLATELET COUNT 264 10^3/uL (134-434); RBC 4.91 M/mm3 (4.00-5.60); RDW 14.8 % (11.9-15.9); WHITE BLOOD COUNT 13.1 K/mm3 (4.0-10.0)
[2023-04-30 16:38] LABS: VENOUS BASE EXCESS -7.1 mmol/L (-2-2); VENOUS O2 SATURATION 54.1 % (70-80); VENOUS PCO2 54.2 mmHg (38-52); VENOUS PH 7.215 (7.310-7.410)
[2023-04-30 16:47] LABS: POTASSIUM 5.3 mmol/L (3.5-5.1)
[2023-04-30 16:49] LABS: CALCIUM 9.1 mg/dL (8.5-10.1)
[2023-04-30 16:50] LABS: ALBUMIN 3.9 g/dl (3.4-5.0); BLOOD UREA NITROGEN 45.9 mg/dL (7-18)
[2023-04-30 16:53] LABS: CREATININE 2.4 mg/dL (0.55-1.3); PHOSPHOROUS 2.8 mg/dL (2.5-4.9)
[2023-04-30 16:55] LABS: LACTIC ACID 2.8 mmol/L (0.4-2.0)
[2023-04-30 16:56] LABS: BILIRUBIN,TOTAL 0.7 mg/dL (0.2-1); TOT PROT 8.2 g/dl (6.4-8.2)
[2023-04-30 16:58] LABS: N-TERMINAL BNP 10159.3 pg/ml (5-125)
[2023-04-30 17:19] LABS: ANISOCYTOSIS 0; MACROCYTOSIS 0
[2023-04-30] MEDS: ETOMIDATE 40 MG/20 ML VIAL IVPUSH ONE (17:57)
[2023-04-30] MEDS: SUCCINYLCHOLINE CHLORIDE 200 MG/10 ML VIAL IVPUSH ONE (17:58)
[2023-04-30] MEDS ORDERED: FUROSEMIDE 40 MG/4 ML INJECTABLE VIAL ONE (18:08)
[2023-04-30] MEDS: FUROSEMIDE 40 MG/4 ML INJECTABLE VIAL IVPUSH ONE (18:53)
[2023-04-30 19:45] LABS: EPI CELLS >36 /uL (0-25.1); HYALINE CASTS 3 /uL (0-3.1); PH,URINE 5.5 (5.0-8.0); URINE APPEARANCE CLEAR; URINE BACTERIA 15 /uL (0-1359); URINE BILIRUBIN NEGATIVE (NEGATIVE); URINE COLOR YELLOW; URINE GLUCOSE (UA) NEGATIVE (NEGATIVE); URINE KETONE TRACE (NEGATIVE); URINE LEUK ESTERASE NEGATIVE (NEGATIVE); URINE NITRITE NEGATIVE (NEGATIVE); URINE PROTEIN 4+ (NEGATIVE); URINE RBC 29 /uL (0-23.9); URINE WBC 47 /uL (0-25.8)
[2023-04-30 19:55] LABS: LACTIC ACID 2.3 mmol/L (0.4-2.0)
[2023-04-30 20:39] VITALS: BMI 32.3
[2023-04-30] MEDS: HEPARIN NA (PORCINE) 5,000 UNITS/ML 1ML VIAL SQ SCH (23:03)
[2023-04-30] MEDS: FUROSEMIDE INJECTION 100 MG in DEXTROSE 5%-WATER - 90 ML IVPB SCH (23:03)
[2023-04-30] MEDS: PANTOPRAZOLE SODIUM 40 MG VIAL IVPUSH STA (23:03)
[2023-04-30] MEDS: ROSUVASTATIN CA 5 MG TABLET PO SCH (23:04)
[2023-05-01 07:43] LABS: HEMATOCRIT 37.9 % (35.4-49); HEMOGLOBIN 12.5 GM/dL (11.7-16.9); MCH 31.1 pg (25.7-33.7); MCHC 32.9 g/dl (32.0-35.9); MEAN CELL VOLUME 94.3 fl (80-96); MEAN PLT VOLUME 8.4 fl (7.5-11.1); PLATELET COUNT 170 10^3/uL (134-434); RBC 4.01 M/mm3 (4.00-5.60); RDW 14.6 % (11.9-15.9); WHITE BLOOD COUNT 14.3 K/mm3 (4.0-10.0)
[2023-05-01 08:02] LABS: CHLORIDE 110 mmol/L (98-107); POTASSIUM 4.4 mmol/L (3.5-5.1); SODIUM 143 mmol/L (136-145)
[2023-05-01 08:05] LABS: ANION GAP 8 mmol/L (4-13); BLOOD UREA NITROGEN 50.3 mg/dL (7-18); CO2 24 mmol/L (21-32); GLUCOSE,RANDOM 122 mg/dL (74-106); MAGNESIUM 1.9 mg/dL (1.8-2.4)
[2023-05-01 08:08] LABS: CREATININE 2.7 mg/dL (0.55-1.3); PHOSPHOROUS 2.9 mg/dL (2.5-4.9); URIC ACID 5.9 mg/dL (2.6-7.2)
[2023-05-01 08:15] LABS: CALCIUM 8.8 mg/dL (8.5-10.1)
[2023-05-01 08:34] LABS: N-TERMINAL BNP 72156.3 pg/ml (5-125)
[2023-05-01] MEDS: PANTOPRAZOLE SODIUM 40 MG VIAL IVPUSH SCH (10:10)
[2023-05-01] MEDS: ALLOPURINOL 100 MG TABLET (FP) PO SCH (10:10)
[2023-05-01] MEDS: ASPIRIN COATED 81 MG TABLET.EC PO SCH (10:11)
[2023-05-01] MEDS ORDERED: ACETAMINOPHEN INJECTION 100 ML IVPB ONE (10:29)
[2023-05-01] MEDS: ACETAMINOPHEN 1000 MG/100 ML BAG IVPB PRN (10:30)
[2023-05-01] MEDS: GABAPENTIN 100 MG CAPSULE PO SCH (11:09)
[2023-05-01] MEDS ORDERED: PIPERACILLIN/TAZOB 2.25 GM 2.25 GM in DEXTROSE 5%-WATER - 50 ML IVPB SCH (16:30)
[2023-05-01] MEDS: PIPERACILLIN/TAZOB 2.25 GM 2.25 GM in DEXTROSE 5%-WATER - 50 ML IVPB SCH (17:56)
[2023-05-01 17:59] LABS: LACTIC ACID 2.9 mmol/L (0.4-2.0)
[2023-05-02 07:40] LABS: BASO % 0.7 % (0-2.0); EOS % 0.6 % (0-4.5); HEMATOCRIT 37.6 % (35.4-49); HEMOGLOBIN 12.4 GM/dL (11.7-16.9); LYMPH % 9.5 % (8-40); MCH 31.2 pg (25.7-33.7); MCHC 32.9 g/dl (32.0-35.9); MEAN PLT VOLUME 8.3 fl (7.5-11.1); MONO % 9.7 % (3.8-10.2); NEUT % 79.5 % (42.8-82.8); PLATELET COUNT 124 10^3/uL (134-434); RBC 3.96 M/mm3 (4.00-5.60); RDW 14.5 % (11.9-15.9); WHITE BLOOD COUNT 8.1 K/mm3 (4.0-10.0)
[2023-05-02 07:56] LABS: POTASSIUM 4.4 mmol/L (3.5-5.1)
[2023-05-02 08:05] LABS: CALCIUM 8.9 mg/dL (8.5-10.1)
[2023-05-02 08:07] LABS: MAGNESIUM 2.1 mg/dL (1.8-2.4)
[2023-05-02 08:09] LABS: CREATININE 3.1 mg/dL (0.55-1.3); PHOSPHOROUS 4.6 mg/dL (2.5-4.9)
[2023-05-02 08:11] LABS: BILIRUBIN,TOTAL 0.8 mg/dL (0.2-1)
[2023-05-02 08:15] LABS: ALBUMIN 2.8 g/dl (3.4-5.0); TOT PROT 5.8 g/dl (6.4-8.2)
[2023-05-02] MEDS: VANCOMYCIN PREMIX 1.5 GM 1,500 MG/300 ML BAG IVPB SCH (10:04)
[2023-05-02] MEDS: HEPARIN NA (PORCINE) 5,000 UNITS/ML 1ML VIAL SQ SCH (14:00)
[2023-05-02] MEDS: LORATADINE 10 MG TABLET PO SCH (14:00)
[2023-05-02] MEDS: GABAPENTIN 100 MG CAPSULE PO SCH (14:00)
[2023-05-02] MEDS: ACETAMINOPHEN 325 MG TABLET (FP) PO PRN (14:00)
[2023-05-02] MEDS: CEFTRIAXONE 2 GM in DEXTROSE 5%-WATER 100 ML IVPB SCH (14:49)
[2023-05-02] MEDS: ROSUVASTATIN CA 5 MG TABLET PO SCH (21:16)
[2023-05-02] MEDS ORDERED: VANCOMYCIN PREMIX 1.5 GM 1,500 MG/300 ML BAG IVPB SCH (22:00)
[2023-05-03 06:31] LABS: BASO % 1.2 % (0-2.0); EOS % 5.1 % (0-4.5); HEMATOCRIT 37.4 % (35.4-49); HEMOGLOBIN 12.3 GM/dL (11.7-16.9); LYMPH % 8.5 % (8-40); MCH 30.6 pg (25.7-33.7); MEAN CELL VOLUME 92.7 fl (80-96); MEAN PLT VOLUME 8.7 fl (7.5-11.1); MONO % 15.3 % (3.8-10.2); NEUT % 69.9 % (42.8-82.8); PLATELET COUNT 145 10^3/uL (134-434); RBC 4.04 M/mm3 (4.00-5.60); RDW 14.8 % (11.9-15.9)
[2023-05-03 07:14] LABS: ALBUMIN 2.9 g/dl (3.4-5.0); BILIRUBIN,TOTAL 0.6 mg/dL (0.2-1); BLOOD UREA NITROGEN 59.7 mg/dL (7-18); CALCIUM 8.6 mg/dL (8.5-10.1); CREATININE 2.8 mg/dL (0.55-1.3); MAGNESIUM 2.1 mg/dL (1.8-2.4); PHOSPHOROUS 3.4 mg/dL (2.5-4.9)
[2023-05-03] MEDS: PANTOPRAZOLE SODIUM 40 MG VIAL IVPUSH SCH (09:14)
[2023-05-03] MEDS: ALLOPURINOL 100 MG TABLET (FP) PO SCH (09:14)
[2023-05-03] MEDS: ASPIRIN COATED 81 MG TABLET.EC PO SCH (09:14)
[2023-05-03] MEDS: VANCOMYCIN/WATER FOR INJ (PEG) 1,000 MG/200 ML BAG IVPB ONE (09:14)
[2023-05-04 06:38] LABS: HEMATOCRIT 37.4 % (35.4-49); HEMOGLOBIN 12.1 GM/dL (11.7-16.9); MCH 30.4 pg (25.7-33.7); MCHC 32.4 g/dl (32.0-35.9); MEAN CELL VOLUME 93.9 fl (80-96); MEAN PLT VOLUME 8.4 fl (7.5-11.1); PLATELET COUNT 159 10^3/uL (134-434); RBC 3.98 M/mm3 (4.00-5.60); RDW 14.5 % (11.9-15.9); WHITE BLOOD COUNT 7.2 K/mm3 (4.0-10.0)
[2023-05-04 07:28] LABS: POTASSIUM 4.3 mmol/L (3.5-5.1)
[2023-05-04 07:37] LABS: BLOOD UREA NITROGEN 61.9 mg/dL (7-18); CALCIUM 9.2 mg/dL (8.5-10.1)
[2023-05-04 07:41] LABS: BILIRUBIN,TOTAL 0.5 mg/dL (0.2-1); CREATININE 2.9 mg/dL (0.55-1.3)
[2023-05-04 07:42] LABS: TOT PROT 6.2 g/dl (6.4-8.2)
[2023-05-04] MEDS: LACTOBACILLUS ACIDOPHILUS 1 TABLET PO SCH (10:31)
[2023-05-04] MEDS: AMPICILLIN - 2 GM in SODIUM CHLORIDE 100 ML IVPB SCH (10:32)
[2023-05-04] MEDS: CEFTRIAXONE 2 GM in DEXTROSE 5%-WATER 100 ML IVPB SCH ×2 (10:32→22:30)
[2023-05-04 13:33] LABS: ANISOCYTOSIS 0; MACROCYTOSIS 0
[2023-05-04] MEDS: valACYclovir HCL 500 MG TABLET (FP) PO ONE (13:56)
[2023-05-04] MEDS ORDERED: CEFTRIAXONE 2 GM-D5W BAG 2 GM/50 ML BAG IVPB SCH (23:55)
[2023-05-05 06:38] LABS: POTASSIUM 4.4 mmol/L (3.5-5.1)
[2023-05-05 06:42] LABS: CALCIUM 8.3 mg/dL (8.5-10.1)
[2023-05-05 06:43] LABS: ALBUMIN 2.8 g/dl (3.4-5.0); BLOOD UREA NITROGEN 53.5 mg/dL (7-18)
[2023-05-05 06:46] LABS: CREATININE 2.6 mg/dL (0.55-1.3)
[2023-05-05 06:47] LABS: BILIRUBIN,TOTAL 0.4 mg/dL (0.2-1); TOT PROT 6.2 g/dl (6.4-8.2)
[2023-05-05 07:39] LABS: HEMATOCRIT 36.6 % (35.4-49); HEMOGLOBIN 12.5 GM/dL (11.7-16.9); MCH 31.3 pg (25.7-33.7); MCHC 34.1 g/dl (32.0-35.9); MEAN CELL VOLUME 91.8 fl (80-96); MEAN PLT VOLUME 8.5 fl (7.5-11.1); PLATELET COUNT 166 10^3/uL (134-434); RBC 3.99 M/mm3 (4.00-5.60); RDW 14.4 % (11.9-15.9); WHITE BLOOD COUNT 6.7 K/mm3 (4.0-10.0)
[2023-05-05] MEDS ORDERED: LIDOCAINE VISCOUS 2% ORAL/TOP 15 ML UNIT-DOSE CUP ONE (10:53)
[2023-05-05 19:24] VITALS: RESP 18
[2023-05-06 06:42] LABS: BASO % 1.6 % (0-2.0); EOS % 6.9 % (0-4.5); HEMATOCRIT 40.4 % (35.4-49); HEMOGLOBIN 13.3 GM/dL (11.7-16.9); LYMPH % 10.9 % (8-40); MCH 30.6 pg (25.7-33.7); MCHC 32.8 g/dl (32.0-35.9); MEAN CELL VOLUME 93.1 fl (80-96); MEAN PLT VOLUME 8.1 fl (7.5-11.1); MONO % 9.5 % (3.8-10.2); NEUT % 71.1 % (42.8-82.8); PLATELET COUNT 217 10^3/uL (134-434); RBC 4.34 M/mm3 (4.00-5.60)
[2023-05-06 06:59] LABS: POTASSIUM 4.6 mmol/L (3.5-5.1)
[2023-05-06 07:04] LABS: ALBUMIN 3.2 g/dl (3.4-5.0); BLOOD UREA NITROGEN 54.1 mg/dL (7-18); CALCIUM 9.1 mg/dL (8.5-10.1)
[2023-05-06 07:07] LABS: CREATININE 2.6 mg/dL (0.55-1.3)
[2023-05-06 07:09] LABS: BILIRUBIN,TOTAL 0.3 mg/dL (0.2-1); TOT PROT 6.9 g/dl (6.4-8.2)
[2023-05-06] MEDS: valACYclovir HCL 500 MG TABLET (FP) PO SCH (08:20)
[2023-05-06] MEDS: ROSUVASTATIN CA 5 MG TABLET PO SCH (23:18)
[2023-05-06] MEDS: HEPARIN NA (PORCINE) 5,000 UNITS/ML 1ML VIAL SQ SCH (23:18)
[2023-05-06] MEDS: CEFTRIAXONE 2 GM in DEXTROSE 5%-WATER 100 ML IVPB SCH (23:19)
[2023-05-06] MEDS: GABAPENTIN 100 MG CAPSULE PO SCH (23:19)
[2023-05-07] MEDS: AMPICILLIN - 2 GM in SODIUM CHLORIDE 100 ML IVPB SCH (02:28)
[2023-05-07] MEDS: valACYclovir HCL 500 MG TABLET (FP) PO SCH (08:22)
[2023-05-07 08:58] LABS: POTASSIUM 4.4 mmol/L (3.5-5.1)
[2023-05-07 09:11] LABS: CALCIUM 9.2 mg/dL (8.5-10.1)
[2023-05-07 09:12] LABS: ALBUMIN 2.8 g/dl (3.4-5.0); BLOOD UREA NITROGEN 52.8 mg/dL (7-18)
[2023-05-07 09:14] LABS: CREATININE 2.6 mg/dL (0.55-1.3)
[2023-05-07 09:16] LABS: BILIRUBIN,TOTAL 0.3 mg/dL (0.2-1); TOT PROT 6.1 g/dl (6.4-8.2)
[2023-05-07 09:24] LABS: HEMOGLOBIN 12.1 GM/dL (11.7-16.9); MCH 30.4 pg (25.7-33.7); MCHC 32.6 g/dl (32.0-35.9); MEAN CELL VOLUME 93.3 fl (80-96); PLATELET COUNT 217 10^3/uL (134-434); RBC 3.97 M/mm3 (4.00-5.60); RDW 14.3 % (11.9-15.9); WHITE BLOOD COUNT 8.1 K/mm3 (4.0-10.0)
[2023-05-07] MEDS: LACTOBACILLUS ACIDOPHILUS 1 TABLET PO SCH (09:27)
[2023-05-07] MEDS: PANTOPRAZOLE 40 MG TABLET PO SCH (09:27)
[2023-05-07] MEDS: LORATADINE 10 MG TABLET PO SCH (09:27)
[2023-05-07] MEDS: ASPIRIN COATED 81 MG TABLET.EC PO SCH (09:27)
[2023-05-07] MEDS: ALLOPURINOL 100 MG TABLET (FP) PO SCH (09:28)
[2023-05-07] MEDS ORDERED: PANTOPRAZOLE 40 MG TABLET PO SCH (10:00)
[2023-05-07] MEDS: ACETAMINOPHEN 325 MG TABLET (FP) PO PRN (21:07)
[2023-05-08 08:39] LABS: HEMATOCRIT 38.1 % (35.4-49); MCH 31.4 pg (25.7-33.7); MCHC 34.1 g/dl (32.0-35.9); MEAN CELL VOLUME 92.2 fl (80-96); MEAN PLT VOLUME 7.6 fl (7.5-11.1); PLATELET COUNT 283 10^3/uL (134-434); RBC 4.14 M/mm3 (4.00-5.60); RDW 14.3 % (11.9-15.9); WHITE BLOOD COUNT 8.7 K/mm3 (4.0-10.0)
[2023-05-08 08:59] LABS: POTASSIUM 4.8 mmol/L (3.5-5.1)
[2023-05-08 09:00] LABS: CALCIUM 9.3 mg/dL (8.5-10.1)
[2023-05-08 09:01] LABS: BLOOD UREA NITROGEN 53.2 mg/dL (7-18)
[2023-05-08 09:04] LABS: CREATININE 2.5 mg/dL (0.55-1.3)
[2023-05-09 04:57] VITALS: TEMP 98.1
[2023-05-09] MEDS: DAPTOMYCIN 800 MG in SODIUM CHLORIDE 100 ML IVPB ONE (12:10)
[2023-05-09 13:17] VITALS: BP 144/59; PULSE 101
== END 2023-05-09 15:30 | disposition home or self-care (01) | DRG 291 ==
LOC: JER 15:40 → JERBED 17:37 → JICU 20:23 → J4W 05-02 11:28 → J6S 05-06 20:17
PROVIDERS: ADMIT Internal Medicine Pulmonary Disease; ATTEND Internal Medicine
DX: I13.0 Hypertensive heart and chronic kidney disease with heart failure and stage 1 through stage 4 chronic kidney disease, or unspecified chronic kidney disease (principal); A41.81 Sepsis due to Enterococcus; I50.23 Acute on chronic systolic (congestive) heart failure; R65.21 Severe sepsis with septic shock; J96.01 Acute respiratory failure with hypoxia; I24.89 Other forms of acute ischemic heart disease; I16.1 Hypertensive emergency; C64.9 Malignant neoplasm of unspecified kidney, except renal pelvis; N39.0 Urinary tract infection, site not specified; I48.92 Unspecified atrial flutter; E87.20 Acidosis, unspecified; N17.9 Acute kidney failure, unspecified; J44.9 Chronic obstructive pulmonary disease, unspecified; N18.9 Chronic kidney disease, unspecified; E78.00 Pure hypercholesterolemia, unspecified; E78.5 Hyperlipidemia, unspecified; K21.9 Gastro-esophageal reflux disease without esophagitis; I25.119 Atherosclerotic heart disease of native coronary artery with unspecified angina pectoris; Z95.1 Presence of aortocoronary bypass graft; M10.9 Gout, unspecified; R21 Rash and other nonspecific skin eruption
CPT/HCPCS: 0241U-QW; 36415; 71045-TC-FY; 74176-TC; 76775-TC; 80048; 80053; 81003; 82550; 82803; 83605; 83735; 83835; 83880; 84100; 84484; 84550; 85025; 85027; 85651; 86140; 86850; 86900; 86901; 87040; 87086; 87186; 87899; 93005; 93010; 93306-TC; 93312; 93325; 94660; 99291; G0480; J0131; J0878; J1644

== ENCOUNTER 2023-05-10 13:08 | Day surgery (SDC) | payer OTHER, MEDICARE ==
[2023-05-10] MEDS: DALBAVANCIN HCL 1,000 MG in DEXTROSE 5%-WATER - 500 ML IVPB ONE (13:46)
[2023-05-10 15:00] VITALS: BP 133/50; PULSE 80; RESP 18; TEMP 98.3
== END 2023-05-10 15:02 | disposition home or self-care (01) ==
LOC: FINFUSION 13:08 → FM/S 13:11 → FINFUSION 15:02
PROVIDERS: ATTEND Internal Medicine
DX: A41.81 Sepsis due to Enterococcus (principal)
CPT/HCPCS: 96365; J0875

== ENCOUNTER 2023-05-17 13:01 | Day surgery (SDC) | payer OTHER, MEDICARE ==
[2023-05-17] MEDS: DALBAVANCIN HCL 1,000 MG in DEXTROSE 5%-WATER - 500 ML IVPB ONE (13:40)
[2023-05-17 14:54] VITALS: BP 120/53; PULSE 77; RESP 18; TEMP 98.1
== END 2023-05-17 14:30 | disposition home or self-care (01) ==
LOC: FINFUSION 13:01 → FM/S 13:02 → FINFUSION 14:30
PROVIDERS: ATTEND Internal Medicine
DX: A41.81 Sepsis due to Enterococcus (principal)
CPT/HCPCS: 96365; J0875

== ENCOUNTER 2023-05-24 13:03 | Day surgery (SDC) | payer OTHER, MEDICARE ==
[2023-05-24 13:48] VITALS: BP 144/59; PULSE 81; RESP 18; TEMP 98.1
[2023-05-24] MEDS: DALBAVANCIN HCL 1,000 MG in DEXTROSE 5%-WATER - 500 ML IVPB ONE (14:16)
== END 2023-05-24 13:30 | disposition home or self-care (01) ==
LOC: FINFUSION 13:03 → FM/S 13:04 → FINFUSION 13:30
PROVIDERS: ATTEND Internal Medicine
DX: A41.81 Sepsis due to Enterococcus (principal)
CPT/HCPCS: 96365; J0875

== ENCOUNTER 2024-01-20 05:04 | Day surgery (SDC) | payer OTHER, MEDICARE ==
[2024-01-18 17:54] VITALS: BMI 27.1
[2024-01-20] MEDS ORDERED: LIDOCAINE HCL/PF 1% SDV 5ML VIAL ONE (07:19)
[2024-01-20] MEDS ORDERED: BUPIVACAINE HCL/PF 0.75% 10 ML VIAL ONE (07:19)
[2024-01-20] MEDS ORDERED: ACETAMINOPHEN 500 MG TABLET (FP) PO PRN (08:47)
[2024-01-20 10:58] VITALS: RESP 20
[2024-01-20] MEDS: BUPIVACAINE HCL/PF 0.75% 10 ML VIAL NR ONE ×3 (12:02)
[2024-01-20] MEDS: LIDOCAINE HCL 1% PRESERVATIVE FREE - 30ML VIAL IJ ONE ×2 (12:02)
[2024-01-20 15:51] VITALS: BP 140/68; PULSE 64; TEMP 97
== END 2024-01-20 13:00 | disposition home or self-care (01) ==
LOC: JASU-SURG 05:04
PROVIDERS: ATTEND Pain Medicine Pain Medicine
PROC: 3E0T33Z Introduction of Anti-inflammatory into Peripheral Nerves and Plexi, Percutaneous Approach (ICD-10-PCS; 2024-01-20)
PROC: 3E0T3BZ Introduction of Anesthetic Agent into Peripheral Nerves and Plexi, Percutaneous Approach (ICD-10-PCS; principal; 2024-01-20 12:00)
DX: M47.816 Spondylosis without myelopathy or radiculopathy, lumbar region (principal)
CPT/HCPCS: 76000-TC-FY

== ENCOUNTER 2024-02-16 04:04 | Day surgery (SDC) | payer OTHER, MEDICARE ==
[2024-02-15 10:51] VITALS: BMI 27.1
[2024-02-16] MEDS ORDERED: TRIAMCINOLONE ACET 40MG/1ML VIAL ONE (07:18)
[2024-02-16] MEDS ORDERED: LIDOCAINE HCL/PF 1% SDV 5ML VIAL ONE (07:19)
[2024-02-16] MEDS ORDERED: BUPIVACAINE HCL/PF 0.5% (5MG/ML) 10 ML VIAL ONE (07:19)
[2024-02-16 08:41] VITALS: TEMP 97.5
[2024-02-16] MEDS: LIDOCAINE HCL 1% PRESERVATIVE FREE - 30ML VIAL IJ ONE ×3 (09:14)
[2024-02-16 09:47] VITALS: BP 150/61; PULSE 61; RESP 18
[2024-02-16] MEDS ORDERED: ACETAMINOPHEN 500 MG TABLET (FP) PO PRN (19:13)
== END 2024-02-16 10:29 | disposition home or self-care (01) ==
LOC: JASU-SURG 04:04
PROVIDERS: ATTEND Pain Medicine Pain Medicine
PROC: 01HY3MZ Insertion of Neurostimulator Lead into Peripheral Nerve, Percutaneous Approach (ICD-10-PCS; principal; 2024-02-16 09:00)
DX: G89.4 Chronic pain syndrome (principal); M54.50 Low back pain, unspecified
CPT/HCPCS: 64555; C1778; 76000-TC-FY

== ENCOUNTER 2024-03-08 04:18 | Day surgery (SDC) | payer OTHER, MEDICARE ==
[2024-03-02 09:52] VITALS: BMI 26.9
[2024-03-08] MEDS ORDERED: LIDOCAINE HCL/PF 1% SDV 5ML VIAL ONE (07:17)
[2024-03-08] MEDS: LIDOCAINE HCL 1% PRESERVATIVE FREE - 30ML VIAL IJ ONE ×4 (08:37)
[2024-03-08 09:04] VITALS: BP 142/68; PULSE 65; RESP 20; TEMP 97.5
[2024-03-08] MEDS ORDERED: ACETAMINOPHEN 500 MG TABLET (FP) PO PRN (09:19)
== END 2024-03-08 09:34 | disposition home or self-care (01) ==
LOC: JASU-SURG 04:18
PROVIDERS: ATTEND Pain Medicine Pain Medicine
PROC: 01HY3MZ Insertion of Neurostimulator Lead into Peripheral Nerve, Percutaneous Approach (ICD-10-PCS; principal; 2024-03-08 08:30)
DX: G89.4 Chronic pain syndrome (principal); M54.50 Low back pain, unspecified
CPT/HCPCS: 64555; C1778; 76000-TC-FY